=== PATIENT | male | born 1970 | race Caucasian/White ===

== ENCOUNTER → 2018-03-28 | Outpatient (CLI) | payer OTHER ==
--- NOTE | 2018-03-28 19:04 | CT ---
EXAMINATION TYPE: CT abdomen pelvis wo con DATE OF EXAM: 03/28/2018 COMPARISON: NONE HISTORY: Hematuria x couple days. CT DLP: 549.4 mGycm Automated exposure control for dose reduction was used. TECHNIQUE: Helical acquisition of images was performed from the lung bases through the pelvis. FINDINGS: Lung bases are clear. There is no pleural effusion. Heart size is normal. Liver shows no focal defect. Spleen pancreas gallbladder appear normal. Bile ducts are not dilated. There is no adrenal mass. The kidneys have normal size and contour. There is no hydronephrosis. Urete rs are not dilated. Appendix appears normal. There is no retroperitoneal adenopathy. I see no intesti nal wall thickening. There are no dilated loops. Bladder distends smoothly. There is no free fluid. T here is no sign of free air. The bony structures are intact. IMPRESSION: NEGATIVE CT SCAN OF THE ABDOMEN AND PELVIS.
== END | disposition home or self-care (01) ==
LOC: RADCTMAIN 16:44
PROVIDERS: ATTEND Family Medicine
DX: R31.0 Gross hematuria (principal)
CPT/HCPCS: 74176

== ENCOUNTER → 2019-05-20 | Outpatient (CLI) | payer OTHER ==
--- NOTE | 2019-05-20 15:10 | US ---
EXAMINATION TYPE: US venous doppler duplex LE LT DATE OF EXAM: 05/20/2019 12:12 PM COMPARISON: NONE CLINICAL HISTORY: R60.0 EDEMA. Pain behind left knee since last night SIDE PERFORMED: left TECHNIQUE: The lower extremity deep venous system is examined utilizing real time linear array sonog kenny with graded compression, doppler sonography and color-flow sonography. VESSELS IMAGED: External Iliac Vein (EIV) Common Femoral Vein Deep Femoral Vein Greater Saphenous Vein * Femoral Vein Popliteal Vein Small Saphenous Vein * Proximal Calf Veins (* superficial vessels) There is normal flow, compressibility, vascular waveforms. Left Leg: No evidence of DVT as visualized IMPRESSION: No evident deep venous thrombosis at or above the left knee, follow-up as indicated
== END | disposition home or self-care (01) ==
LOC: RADUSWWP 11:48
PROVIDERS: ATTEND Family Medicine
DX: R60.0 Localized edema (principal)

== ENCOUNTER → 2019-06-10 | Outpatient (CLI) | payer OTHER ==
--- NOTE | 2019-06-10 09:26 | US ---
"EXAMINATION TYPE: US liver DATE OF EXAM: 06/10/2019 COMPARISON: CT 2018 CLINICAL HISTORY: K70.40 Alcoholic hepatic failure without coma. Elevated liver enzymes EXAM MEASUREMENTS: Liver Length: 18.5 cm Gallbladder Wall: 0.3 cm CBD: 0.8 cm Right Kidney: 11.5 x 5.3 x 5.2 cm Pancreas: visualized portions wnl, limited by overlying midline bowel gas Liver: enlarged and slightly heterogenous. Gallbladder: pericholecystic fluid seen. No cholelithiasis or biliary sludge. Evidence for sonographic Farias's sign: no CBD: dilated distally Right Kidney: wnl IMPRESSION: 1. Hepatomegaly and slightly coarsened hepatic echotexture in keeping with this patient's history of hepatocellular disease. 2. Scant amount of fluid in the gallbladder fossa may relate to ascites from this patient's hepatocel lular disease or acute cholecystitis as there is dilatation of the common bile duct distally. HIDA sc an is recommended for further evaluation. A Yellow level critical message alert has been initiated for Pedro Campbell MD via the [employer] | Critical Results System on 06/10/2019 9:23 AM. This message alert has been sent to Pedro Campbell MD via the preferences provided by the clinician for the receipt of Radiology Critical Findings. Mess age ID [id number]."
== END | disposition home or self-care (01) ==
LOC: RADUSWWP 06:56
PROVIDERS: ATTEND Family Medicine
DX: K83.8 Other specified diseases of biliary tract (principal); R16.0 Hepatomegaly, not elsewhere classified
CPT/HCPCS: 76705

== ENCOUNTER → 2019-06-20 | Outpatient (CLI) | payer OTHER ==
--- NOTE | 2019-06-20 09:42 | NM ---
EXAMINATION TYPE: NM hepatobiliary w EF DATE OF EXAM: 06/20/2019 COMPARISON: Ultrasound dated 06/10/2019 HISTORY: Abdominal pain, abnormal liver ultrasound dated 06/10/2019 and K 80.2 TECHNIQUE: After the intravenous administration of 5.13 mCi Tc 99m Mebrofenin hepatobiliary scintigra phy is performed. Immediate images post injection. FINDINGS: There is satisfactory initial accumulation of tracer by the liver. The gallbladder is visualized wit hin 12 minutes. The small bowel activity is noted within 8 minutes. At one hour 8 ounces of oral en sure plus is given to mimic CCK and gallbladder ejection fraction is calculated at 51 %, in the navdeep l range. Therefore there is no scintigraphic evidence of cystic or common bile duct obstruction to s uggest acute cholecystitis or gallbladder dyskinesia. IMPRESSION: No scintigraphic evidence of acute cholecystitis, chronic cholecystitis or biliary dyskin esia. The previously seen pericholecystic fluid appears to therefore related to the surrounding hepat ocellular disease on ultrasound of 06/10/2019 rather than acute cholecystitis.
== END ==
LOC: RADNMMAIN 07:03
PROVIDERS: ATTEND Family Medicine
DX: K80.20 Calculus of gallbladder without cholecystitis without obstruction (principal)
CPT/HCPCS: 78226; A9537

== ENCOUNTER → 2019-08-25 | Outpatient (CLI) | payer OTHER ==
--- NOTE | 2019-08-26 05:22 | MR ---
EXAMINATION TYPE: MR MRCP DATE OF EXAM: 08/25/2019 COMPARISON: HISTORY: Abnormal labwork, unspecified jaundice, hx of alcholism per patient Standard multiplanar, multisequence MRI departmental protocol Multiplanar, multisequence images of the abdomen were acquired. There are MRCP images. There are 3-D reconstructed images. FINDINGS: Liver shows no focal defect. Spleen measures 12 cm in length. Liver appears large. The bile ducts are not dilated. I see no definite gallstones. The pancreatic duct appears normal. There is no evidence of a pancreatic mass. Kidneys have normal size and contour. There is no hydronephrosis. There is no evidence of adrenal mas s. There is probably some atelectasis right lung base. There is no pleural effusion. There is mild maco quiana narrowing of the proximal common hepatic duct. I see no definite filling defect. The intrahepat ic bile ducts are not dilated. IMPRESSION: The bile ducts are not dilated. There is a possible mild stricture of the proximal common hepatic nasir t. This could also relate to a crossing structure. A single lesion would be an unusual appearance for sclerosing cholangitis. The intrahepatic bile ducts are not dilated. No definite gallstones. Mild hepatomegaly. No discrete liver mass.
== END | disposition home or self-care (01) ==
LOC: RADMRIMAIN 19:40
PROVIDERS: ATTEND Internal Medicine
DX: R16.0 Hepatomegaly, not elsewhere classified (principal)
CPT/HCPCS: 74181

== ENCOUNTER → 2019-08-25 | Outpatient (CLI) | payer OTHER ==
[2019-08-25 14:41] LABS: INR 1.4 (<1.2); Prothrombin Time 13.9 sec (9.0-12.0)
[2019-08-25 15:09] LABS: HCT 37.3 % (39.0-53.0); HGB 12.7 gm/dL (13.0-17.5); MCH 35.7 pg (25.0-35.0); MCHC 34.1 g/dL (31.0-37.0); MCV 104.6 fL (80.0-100.0); Macrocytosis Slight; Mean Platelet Volume 6.4; Platelet Count 140 k/uL (150-450); RBC 3.56 m/uL (4.30-5.90); RDW 13.8 % (11.5-15.5); WBC 7.8 k/uL (3.8-10.6)
[2019-08-25 18:43] LABS: African American GFR (CKD) 128.4 (60.0-200.0); Albumin 4.1 g/dL (3.80-4.90); Albumin/Globulin Ratio 1.41 (1.60-3.17); Anion Gap 13.9 mmol/L (4.00-12.00); BUN/Creat Ratio 7.14 Ratio (12.00-20.00); Calcium 8.5 mg/dL (8.7-10.3); Carbon Dioxide 24.1 mmol/L (21.6-31.8); Globulin 2.9 g/dL (1.6-3.3); Non-African American GFR(CKD) 110.8 (60.0-200.0); Potassium 3.7 mmol/L (3.5-5.5); Total Bilirubin 2.3 mg/dL (0.2-1.2)
[2019-08-25 21:04] LABS: Iron Saturation 26.85 (15.00-50.00); Iron(FE) 87 ug/dL (65-175); Total Iron Binding Capacity 324 ug/dL (228-460)
[2019-08-25 21:13] LABS: Ferritin 717.9 ng/mL (22.0-322.0)
[2019-08-25 22:14] LABS: Hepatitis A Antibody IgM Non-Reactive (Non-Reactive); Hepatitis B Core IgM Non-Reactive (Non-Reactive)
[2019-08-25 22:15] LABS: Hepatitis B Surface Antigen Non-Reactive (Non-Reactive); Hepatitis C IgG Antibody Non-Reactive (Non-Reactive)
[2019-08-26 00:47] LABS: Alpha Fetoprotein, Tumor Mkr 7.8 ng/mL (0.0-7.9)
[2019-08-26 11:11] LABS: Liver/Kidney Microsome Antibod 1.3 UNITS (<=20)
[2019-08-26 15:29] LABS: Ceruloplasmin 30.3 mg/dL (20.0-60.0)
[2019-08-26 16:24] LABS: Gamma Globulin 1.48 g/dL (0.70-1.50)
== END | disposition home or self-care (01) ==
LOC: LABWHC1 13:40
PROVIDERS: ATTEND Internal Medicine
DX: R74.8 Abnormal levels of other serum enzymes (principal)
CPT/HCPCS: 36415; 80053; 80074; 81596; 82103; 82105; 82140; 82390; 82728; 83516; 83540; 83550; 84165; 85027; 85610; 86376

== ENCOUNTER → 2019-12-01 | Outpatient (CLI) | payer OTHER ==
[2019-12-01 09:57] LABS: INR 1.4 (<1.2); Prothrombin Time 14.3 sec (9.0-12.0)
[2019-12-01 10:01] LABS: HGB 13.5 gm/dL (13.0-17.5); MCH 34.7 pg (25.0-35.0); MCHC 32.2 g/dL (31.0-37.0); MCV 107.7 fL (80.0-100.0); Macrocytosis Marked; Mean Platelet Volume 9.4; RDW 14.7 % (11.5-15.5); WBC 7.1 k/uL (3.8-10.6)
[2019-12-01 10:39] LABS: Platelet Count 92 k/uL (150-450)
[2019-12-01 16:07] LABS: Protein, Total 7.3 g/dL (6.2-8.2)
[2019-12-01 16:12] LABS: African American GFR (CKD) 121.6 (60.0-200.0); Albumin 3.9 g/dL (3.80-4.90); Albumin/Globulin Ratio 1.15 (1.60-3.17); Anion Gap 11.6 mmol/L (4.00-12.00); BUN/Creat Ratio 11.25 Ratio (12.00-20.00); Calcium 8.7 mg/dL (8.7-10.3); Carbon Dioxide 25.4 mmol/L (21.6-31.8); Globulin 3.4 g/dL (1.6-3.3); Non-African American GFR(CKD) 104.9 (60.0-200.0); Potassium 4.1 mmol/L (3.5-5.5); Total Bilirubin 3.3 mg/dL (0.2-1.2); Total Protein 7.3 g/dL (6.2-8.2)
[2019-12-02 11:49] LABS: Albumin 3.55 g/dL (3.80-4.90); Gamma Globulin 1.93 g/dL (0.70-1.50)
== END | disposition home or self-care (01) ==
LOC: LABWHC1 08:13
PROVIDERS: ATTEND Internal Medicine
DX: R74.8 Abnormal levels of other serum enzymes (principal)
CPT/HCPCS: 36415; 80053; 84165; 85027; 85610

== ENCOUNTER 2019-12-03 01:00 | Inpatient (IN) | payer OTHER ==
[2019-12-03] MEDS ORDERED: ONDANSETRON 4 MG/2 ML VIAL IVP STA (01:57)
[2019-12-03] MEDS ORDERED: SODIUM CHLORIDE 0.9% 1,000 ML IV ONE ×2 (01:57→11:12)
[2019-12-03] MEDS ORDERED: PANTOPRAZOLE 40 MG/10 ML VIAL IVP STA (01:57)
[2019-12-03 02:07] LABS: HCT 36.6 % (39.0-53.0); HGB 11.6 gm/dL (13.0-17.5); MCHC 31.6 g/dL (31.0-37.0); MCV 107.6 fL (80.0-100.0); Macrocytosis Marked; Mean Platelet Volume 10.1; RBC 3.41 m/uL (4.30-5.90)
[2019-12-03] MEDS ORDERED: OCTREOTIDE 100 MCG in SODIUM CHLORIDE 0.9% 100 ML IVPB ONE (02:15)
[2019-12-03 02:16] LABS: INR 1.5 (<1.2); Partial Thromboplastin Time 30.6 sec (22.0-30.0); Prothrombin Time 14.8 sec (9.0-12.0)
--- NOTE | 2019-12-03 02:17 | ED ---
GI Bleed HPI - General Chief complaint: GI Bleed Stated complaint: Vomiting Time Seen by Provider: 12/03/19 02:08 Source: patient, family Mode of arrival: ambulatory Limitations: no limitations - History of Present Illness Initial comments: Paresh a 48-year-old alcoholic male who presents the emergency department today via private vehicle for evaluation of GI bleed. Patient reports she's been having black stools for 2-3 days and today began having dark bloody vomitus. Patient reports he usually drinks 6-8 beers daily he's been a drinker for a very long period of time, in October 2019 he began a workup for possible liver cancer though was told likely not cancer does alcoholic liver disease. He follows with Dr. ema barbosa. He denies having ever had an EGD or colonoscopy. He denies previous GI bleeding. Denies any diagnosis of esophageal varices in the past. Last drink was in the afternoon - Related Data Home Medications Medication Instructions Recorded Confirmed Blood Pressure Med (Unknown) 1 tab PO DIRECTED 12/03/14 03/03/15 LORazepam [Ativan] 0.5 mg PO BID PRN 12/03/14 03/03/15 Previous Rx's Medication Instructions Recorded Meclizine [Antivert] 25 mg PO TID PRN #12 tab 03/03/15 Allergies Allergy/AdvReac Type Severity Reaction Status Date / Time No Known Allergies Allergy Verified 12/03/19 01:14 Review of Systems ROS Statement: Those systems with pertinent positive or pertinent negative responses have been documented in the HPI. ROS Other: All systems not noted in ROS Statement are negative. Past Medical History Past Medical History: Hypertension Additional Past Medical History / Comment(s): ETOH abuse, liver failure History of Any Multi-Drug Resistant Organisms: None Reported Past Surgical History: Hernia Repair Additional Past Surgical History / Comment(s): Inguinal Herniea repair Past Psychological History: Anxiety Smoking Status: Never smoker Past Alcohol Use History: Heavy Past Drug Use History: None Reported General Exam - General Exam Comments Initial Comments: Physical Exam GENERAL: Chronically ill, appears older than stated age HENT: Normocephalic, Atraumatic. EYES: PERRL, EOMI PULMONARY: Unlabored respirations. No audible rales rhonchi or wheezing was noted. CARDIOVASCULAR: Tachycardic, regular with warm and well perfused extremities ABDOMEN: Hepatomegaly SKIN: Stigmata of alcoholism : Deferred NEUROLOGIC: Patient is alert and oriented x3. Moving all extremities spontaneously MUSCULOSKELETAL: Normal extremities with adequate strength and full range of motion. No lower extremity swelling or edema. No calf tenderness. PSYCHIATRIC: Normal psychiatric evaluation. Limitations: no limitations Course Vital Signs 12/03/19 12/03/19 12/03/19 01:10 02:06 03:04 Temperature 98.4 F Pulse Rate 125 H 121 H 114 H Respiratory 18 18 18 Rate Blood Pressure 133/82 119/59 131/71 O2 Sat by Pulse 95 94 L 95 Oximetry Medical Decision Making - Medical Decision Making The patient was seen and evaluated history is obtained from patient and at bedside and review of medical record 48-year-old alcoholic male with hematemesis and dark tarry stools. Tachycardia, no hypotension, no pallor Will treat empirically as a possible variceal bleeding. Labs were checked 2 days prior - patient has 2 g hemoglobin drop today Given risk factors - EtOH liver disease, coagulopathy - and tachycardia and significant hemoglobin drop I will recommend the patient be admitted to the ICU Care was discussed with his primary care physician who agrees with plan for admission to ICU with serial H&H's and consult to gastroenterology next line patient care was discussed with the rabbit breeder Dr. Palomares and who agrees with plan for admission, medications as given, consult gastroenterology and serial H&H. - Lab Data Result diagrams: 12/03/19 01:46 12/03/19 01:46 Lab Results 12/03/19 12/03/19 12/03/19 Range/Units 01:46 01:46 01:46 WBC 10.0 (3.8-10.6) k/uL RBC 3.41 L (4.30-5.90) m/uL Hgb 11.6 L (13.0-17.5) gm/dL Hct 36.6 L (39.0-53.0) % MCV 107.6 H (80.0-100.0) fL MCH 34.0 (25.0-35.0) pg MCHC 31.6 (31.0-37.0) g/dL RDW 15.0 (11.5-15.5) % Plt Count 95 L (150-450) k/uL Neutrophils % (Manual) 63 % Lymphocytes % (Manual) 26 % Monocytes % (Manual) 7 % Eosinophils % (Manual) 4 % Neutrophils # (Manual) 6.30 (1.3-7.7) k/uL Lymphocytes # (Manual) 2.60 (1.0-4.8) k/uL Monocytes # (Manual) 0.70 (0-1.0) k/uL Eosinophils # (Manual) 0.40 (0-0.7) k/uL Nucleated RBCs 0 (0-0) /100 WBC Manual Slide Review Performed Macrocytosis Marked A PT 14.8 H (9.0-12.0) sec INR 1.5 H (<1.2) APTT 30.6 H (22.0-30.0) sec Sodium 141 (137-145) mmol/L Potassium 4.5 (3.5-5.1) mmol/L Chloride 106 (98-107) mmol/L Carbon Dioxide 24 (22-30) mmol/L Anion Gap 11 mmol/L BUN 17 (9-20) mg/dL Creatinine 0.65 L (0.66-1.25) mg/dL Est GFR (CKD-EPI)AfAm >90 (>60 ml/min/1.73 sqM) Est GFR (CKD-EPI)NonAf >90 (>60 ml/min/1.73 sqM) Glucose 98 (74-99) mg/dL Plasma Lactic Acid Michele (0.7-2.0) mmol/L Calcium 8.7 (8.4-10.2) mg/dL Total Bilirubin 2.6 H (0.2-1.3) mg/dL AST 148 H (17-59) U/L ALT 54 H (4-49) U/L Alkaline Phosphatase 158 H (38-126) U/L Ammonia (<30) umol/L Total Protein 7.1 (6.3-8.2) g/dL Albumin 3.4 L (3.5-5.0) g/dL Amylase 72 (30-110) U/L Lipase 219 (23-300) U/L Serum Alcohol 75 mg/dL Blood Type Blood Type Confirm Blood Type Recheck Bld Type Recheck Status Antibody Screen Spec Expiration Date 12/03/19 12/03/19 12/03/19 Range/Units 01:46 02:12 02:14 WBC (3.8-10.6) k/uL RBC (4.30-5.90) m/uL Hgb (13.0-17.5) gm/dL Hct (39.0-53.0) % MCV (80.0-100.0) fL MCH (25.0-35.0) pg MCHC (31.0-37.0) g/dL RDW (11.5-15.5) % Plt Count (150-450) k/uL Neutrophils % (Manual) % Lymphocytes % (Manual) % Monocytes % (Manual) % Eosinophils % (Manual) % Neutrophils # (Manual) (1.3-7.7) k/uL Lymphocytes # (Manual) (1.0-4.8) k/uL Monocytes # (Manual) (0-1.0) k/uL Eosinophils # (Manual) (0-0.7) k/uL Nucleated RBCs (0-0) /100 WBC Manual Slide Review Macrocytosis PT (9.0-12.0) sec INR (<1.2) APTT (22.0-30.0) sec Sodium (137-145) mmol/L Potassium (3.5-5.1) mmol/L Chloride (98-107) mmol/L Carbon Dioxide (22-30) mmol/L Anion Gap mmol/L BUN (9-20) mg/dL Creatinine (0.66-1.25) mg/dL Est GFR (CKD-EPI)AfAm (>60 ml/min/1.73 sqM) Est GFR (CKD-EPI)NonAf (>60 ml/min/1.73 sqM) Glucose (74-99) mg/dL Plasma Lactic Acid Michele 2.7 H* (0.7-2.0) mmol/L Calcium (8.4-10.2) mg/dL Total Bilirubin (0.2-1.3) mg/dL AST (17-59) U/L ALT (4-49) U/L Alkaline Phosphatase (38-126) U/L Ammonia 50 H (<30) umol/L Total Protein (6.3-8.2) g/dL Albumin (3.5-5.0) g/dL Amylase (30-110) U/L Lipase (23-300) U/L Serum Alcohol mg/dL Blood Type O Positive Blood Type Confirm O Positive Blood Type Recheck No Previous Record Bld Type Recheck Status CABO Indicated Antibody Screen NEGATIVE Spec Expiration Date 12/06/20193 Critical Care Time Critical Care Time: Yes Total Critical Care Time: 35 Critical Care Time: Critical Care Time Critical care time was exclusive of separately billable procedures and treating other patients and teaching time. Critical care was necessary to treat or prevent imminent or life-threatening deterioration. Given the critical condition in which the patient arrived, the patient was immediately assessed by myself and the nurse, and cardiac monitoring initiated due to the potential for rapid decompensation of the patient's clinical condition. During the course of the patients stay, I spent a considerable amount of time at the bedside performing serial re-evaluations of the patient's hemodynamic and clinical status because of the recognized potential threat to life or limb in this condition. I then had a chance to review not only all of the available current laboratory and radiographic studies obtained today, but I also reviewed old records available to me at the time. Additionally, any ancillary information available including edge blacker records were reviewed. Sequential vital signs were obtained. Disposition Clinical Impression: Hematemesis, Hematochezia, Alcoholic liver disease, Coagulopathy, Acute blood loss anemia Disposition: ADMITTED IP TO THIS [facility] Condition: Critical Referrals: Pedro Campbell MD [Primary Care Provider] - 1-2 days
[2019-12-03 02:21] LABS: ALT 54 U/L (4-49); AST 148 U/L (17-59); African American GFR (CKD) >90 (>60 ml/min/1.73 sqM); Albumin 3.4 g/dL (3.5-5.0); Alcohol 75 mg/dL; Alkaline Phosphatase 158 U/L (38-126); Amylase 72 U/L (30-110); Anion Gap 11 mmol/L; Blood Urea Nitrogen 17 mg/dL (9-20); Calcium 8.7 mg/dL (8.4-10.2); Carbon Dioxide 24 mmol/L (22-30); Chloride 106 mmol/L (98-107); Glucose 98 mg/dL (74-99); Non-African American GFR(CKD) >90 (>60 ml/min/1.73 sqM); Potassium 4.5 mmol/L (3.5-5.1); Sodium 141 mmol/L (137-145); Total Bilirubin 2.6 mg/dL (0.2-1.3); Total Protein 7.1 g/dL (6.3-8.2)
[2019-12-03] MEDS ORDERED: TRANEXAMIC ACID 1,000 MG in SODIUM CHLORIDE 0.9% 100 ML IVPB ONE (02:45)
[2019-12-03 02:49] LABS: Neutrophils % (M) 63 %; Nucleated Red Blood Cells 0 /100 WBC (0-0); Platelet Count 95 k/uL (150-450); Total Cells Counted 100
[2019-12-03] MEDS ORDERED: ONDANSETRON 4 MG/2 ML VIAL IVP PRN (03:02)
[2019-12-03] MEDS ORDERED: NALOXONE 0.4 MG/ML 1 ML VIAL IV PRN (03:02)
[2019-12-03 03:05] LABS: Lactic Acid, Venous 2.7 mmol/L (0.7-2.0)
[2019-12-03] MEDS ORDERED: LACTATED RINGERS 1,000 ML IV SCH (03:15)
[2019-12-03] MEDS ORDERED: LORazepam 2 MG/ML INJ IV PRN ×2 (03:18)
[2019-12-03] MEDS ORDERED: THIAMINE 100 MG/ML 2 ML VIAL IM STA (03:18)
[2019-12-03] MEDS: LORazepam 2 MG/ML INJ IV PRN (03:49)
[2019-12-03 08:47] LABS: Glucose,Whole Blood 129 mg/dL (75-99)
[2019-12-03] MEDS ORDERED: PANTOPRAZOLE 40 MG/10 ML VIAL IV SCH (09:00)
[2019-12-03] MEDS ORDERED: PROCHLORPERAZINE SUPPOSITORY 25 MG SUPP RECTAL PRN (09:00)
--- NOTE | 2019-12-03 11:09 | P.HPIM ---
History of Present Illness 48-year-old male on presented the emergency room with complaints of black tarry stools for 2 days. Patient had E emesis this morning significant other brought into the emergency room. Hemoglobin 11 this is a to 2 g drop. Patient has history of alcohol abuse drink 6-8 beers daily has been doing this for a long time Review of Systems Gastrointestinal: Reports hematemesis, Reports hematochezia Past Medical History Past Medical History: Hypertension Additional Past Medical History / Comment(s): ETOH abuse (6-8 beers a day, "the big boys"), liver failure History of Any Multi-Drug Resistant Organisms: None Reported Past Surgical History: Hernia Repair Additional Past Surgical History / Comment(s): bilateral Inguinal Herniea repair Past Anesthesia/Blood Transfusion Reactions: No Reported Reaction Past Psychological History: Anxiety Smoking Status: Never smoker Past Alcohol Use History: Heavy Past Drug Use History: None Reported - Past Family History Father Family Medical History: Cancer Additional Family Medical History / Comment(s): Passed from Lung CA, heavy smoker Mother Family Medical History: Cancer Additional Family Medical History / Comment(s): Passed from CA Sister(s) Family Medical History: Thyroid Disorder Medications and Allergies Home Medications Medication Instructions Recorded Confirmed Type Lisinopril-Hctz 20-12.5 mg 1 tab PO DAILY 12/03/19 12/03/19 History [Zestoretic 20-12.5] Sertraline [Zoloft] 50 mg PO DAILY 12/03/19 12/03/19 History Allergies Allergy/AdvReac Type Severity Reaction Status Date / Time No Known Allergies Allergy Verified 12/03/19 07:38 Physical Exam Vitals: Vital Signs Temp Pulse Resp BP Pulse Ox 12/03/19 07:24 112 H 18 125/77 94 L 12/03/19 06:07 99.0 F 122 H 18 112/78 94 L 12/03/19 05:00 115 H 18 122/83 92 L 12/03/19 03:55 116 H 18 149/89 92 L 12/03/19 03:04 114 H 18 131/71 95 12/03/19 02:06 121 H 18 119/59 94 L 12/03/19 01:10 98.4 F 125 H 18 133/82 95 Intake and Output 01/28/20 01/29/20 01/29/20 22:59 06:59 14:59 Output Total 200 Balance -200 Output: Urine 200 Other: # Voids 1 Weight 88.451 kg - Constitutional General appearance: mild distress - EENT Eyes: PERRLA Ears: bilateral: normal - Neck Neck: normal ROM - Respiratory Respiratory: bilateral: CTA - Cardiovascular Rhythm: regular - Gastrointestinal General gastrointestinal: normal bowel sounds, soft - Integumentary Integumentary: normal - Neurologic Neurologic: CNII-XII intact - Psychiatric Psychiatric: A&O x's 3, appropriate affect, intact judgment & insight Results CBC & Chem 7: 12/03/19 01:46 12/03/19 01:46 Labs: Abnormal Lab Results - Last 24 Hours (Table) 12/03/19 12/03/19 12/03/19 Range/Units 01:46 01:46 01:46 RBC 3.41 L (4.30-5.90) m/uL Hgb 11.6 L (13.0-17.5) gm/dL Hct 36.6 L (39.0-53.0) % MCV 107.6 H (80.0-100.0) fL Plt Count 95 L (150-450) k/uL Macrocytosis Marked A PT 14.8 H (9.0-12.0) sec INR 1.5 H (<1.2) APTT 30.6 H (22.0-30.0) sec Creatinine 0.65 L (0.66-1.25) mg/dL POC Glucose (mg/dL) (75-99) mg/dL Plasma Lactic Acid Michele (0.7-2.0) mmol/L Total Bilirubin 2.6 H (0.2-1.3) mg/dL AST 148 H (17-59) U/L ALT 54 H (4-49) U/L Alkaline Phosphatase 158 H (38-126) U/L Ammonia (<30) umol/L Albumin 3.4 L (3.5-5.0) g/dL 12/03/19 12/03/19 12/03/19 Range/Units 02:12 06:47 08:46 RBC (4.30-5.90) m/uL Hgb (13.0-17.5) gm/dL Hct (39.0-53.0) % MCV (80.0-100.0) fL Plt Count (150-450) k/uL Macrocytosis PT (9.0-12.0) sec INR (<1.2) APTT (22.0-30.0) sec Creatinine (0.66-1.25) mg/dL POC Glucose (mg/dL) 129 H (75-99) mg/dL Plasma Lactic Acid Michele 2.7 H* 3.3 H* (0.7-2.0) mmol/L Total Bilirubin (0.2-1.3) mg/dL AST (17-59) U/L ALT (4-49) U/L Alkaline Phosphatase (38-126) U/L Ammonia 50 H (<30) umol/L Albumin (3.5-5.0) g/dL Thrombosis Risk Factor Assmnt - Choose All That Apply Each Factor Represents 1 point: Age 41-60 years, Obesity (BMI >25) Thrombosis Risk Factor Assessment Total Risk Factor Score: 2 Thrombosis Risk Factor Assessment Level: Low Risk Assessment and Plan Plan: Assessment GI bleed hematemesis hematochezia Alcoholic liver disease Coagulopathy secondary to above Anemia acute blood loss history of hypertension EtOH abuse 6-8 beers daily Plan Admission intensive care unit with acid tank liner Gastroenterology consult
--- NOTE | 2019-12-03 11:24 | P.CNPUL ---
History of Present Illness Consult date: 12/03/19 Requesting physician: Pedro Campbell Reason for consult: other Chief complaint: Coffee-ground emesis, melena, GI bleeding History of present illness: 48-year-old patient of Dr. Pedro Campbell with past medical history of chronic liver disease related to history of EtOH abuse, patient follows with Dr. Randhawa from GI services. Other medical history is that of hypertension, anxiety, lifetime nonsmoker. No history of diabetes, no history of heart disease, no surgical procedures. She presents to the emergency department on 12/03/2019 little after midnight with a 2 day history of melanotic stools, and last night patient started having dark vomitus, patient had 2 or 3 episodes of ground emesis at home, and one more once he arrived to the emergency department. Admission blood work showed a white blood cell count of 10.0, hemoglobin of 11.6. Platelet count of 95, INR 1.5, electrolytes were within normal limits, BUN 17, creatinine 0.65, lactic acid was 2.7, total bilirubin was 2.6, AST was 148, ALT was 54, alkaline phosphatase was 158, ammonia level was 50, amylase and lipase were both within normal limits, serum alcohol level was 75, patient states he regularly drinks 6-8 tall beers on a daily basis, and his last drink was 2 days ago. Patient was given a liter IV fluid bolus, she was started on PPI therapy, he was given octreotide infusion, tranexamic acid infusion. Currently blood pressure is 141/84, patient still remains tachycardic in sinus mechanism with a rate of 116-124 BPM. Room air pulse ox is 92%, patient denies any shortness of breath, no chest pain, no abdominal pain. IV maintenance fluids infusing at a rate of 100 ML per hour. No further vomiting or melena, awaiting GI evaluation, awaiting admission to the intensive care unit. Review of Systems All systems: negative Constitutional: Denies chills, Denies fever Eyes: denies blurred vision, denies pain Ears, nose, mouth and throat: Denies headache, Denies sore throat Cardiovascular: Denies chest pain, Denies shortness of breath Respiratory: Denies cough Gastrointestinal: Reports coffee ground emesis, Reports melena, Denies abdominal pain, Denies diarrhea, Denies nausea, Denies vomiting Musculoskeletal: Denies myalgias Integumentary: Denies pruritus, Denies rash Neurological: Denies numbness, Denies weakness Psychiatric: Denies anxiety, Denies depression Endocrine: Denies fatigue, Denies weight change Past Medical History Past Medical History: Hypertension Additional Past Medical History / Comment(s): ETOH abuse (6-8 beers a day, "the big boys"), liver failure History of Any Multi-Drug Resistant Organisms: None Reported Past Surgical History: Hernia Repair Additional Past Surgical History / Comment(s): bilateral Inguinal Herniea repair Past Anesthesia/Blood Transfusion Reactions: No Reported Reaction Past Psychological History: Anxiety Smoking Status: Never smoker Past Alcohol Use History: Heavy Past Drug Use History: None Reported - Past Family History Father Family Medical History: Cancer Additional Family Medical History / Comment(s): Passed from Lung [place], heavy smoker Mother Family Medical History: Cancer Additional Family Medical History / Comment(s): Passed from [place] Sister(s) Family Medical History: Thyroid Disorder Medications and Allergies Home Medications Medication Instructions Recorded Confirmed Type Lisinopril-Hctz 20-12.5 mg 1 tab PO DAILY 12/03/19 12/03/19 History [Zestoretic 20-12.5] Sertraline [Zoloft] 50 mg PO DAILY 12/03/19 12/03/19 History Allergies Allergy/AdvReac Type Severity Reaction Status Date / Time No Known Allergies Allergy Verified 12/03/19 07:38 Physical Exam Vitals: Vital Signs Temp Pulse Resp BP Pulse Ox 12/03/19 07:24 112 H 18 125/77 94 L 12/03/19 06:07 99.0 F 122 H 18 112/78 94 L 12/03/19 05:00 115 H 18 122/83 92 L 12/03/19 03:55 116 H 18 149/89 92 L 12/03/19 03:04 114 H 18 131/71 95 12/03/19 02:06 121 H 18 119/59 94 L 12/03/19 01:10 98.4 F 125 H 18 133/82 95 Intake and Output 12/02/19 12/03/19 12/03/19 22:59 06:59 14:59 Output Total 200 Balance -200 Output: Urine 200 Other: # Voids 1 Weight 88.451 kg GENERAL EXAM: Alert, very pleasant, 48-year-old white male, on room air, with a pulse ox of 92-94%, comfortable in no apparent distress. Tachycardic on the monitor, in sinus mechanism with a rate of 116-124 BPM HEAD: Normocephalic/atraumatic. EYES: Normal reaction of pupils, equal size. Conjunctiva pink, sclera white. NOSE: Clear with pink turbinates. THROAT: No erythema or exudates. NECK: No masses, no JVD, no thyroid enlargement, no adenopathy. CHEST: No chest wall deformity. Symmetrical expansion. LUNGS: Equal air entry with no crackles, wheeze, rhonchi or dullness. CVS: Regular rate and rhythm, normal S1 and S2, no gallops, no murmurs, no rubs ABDOMEN: Soft, nontender. No hepatosplenomegaly, normal bowel sounds, no guarding or rigidity. EXTREMITIES: No clubbing, no edema, no cyanosis, 2+ pulses and upper and lower extremities. MUSCULOSKELETAL: Muscle strength and tone normal. SPINE: No scoliosis or deformity SKIN: No rashes CENTRAL NERVOUS SYSTEM: Alert and oriented -3. No focal deficits, tone is normal in all 4 extremities. PSYCHIATRIC: Alert and oriented -3. Appropriate affect. Intact judgment and insight. Results - Laboratory Findings CBC and BMP: 12/03/19 01:46 12/03/19 01:46 PT/INR, D-dimer PT 14.8 sec (9.0-12.0) H 12/03/19 01:46 INR 1.5 (<1.2) H 12/03/19 01:46 Abnormal lab findings: Abnormal Labs 12/03/19 12/03/19 12/03/19 01:46 01:46 01:46 RBC 3.41 L Hgb 11.6 L Hct 36.6 L MCV 107.6 H Plt Count 95 L Macrocytosis Marked A PT 14.8 H INR 1.5 H APTT 30.6 H Creatinine 0.65 L POC Glucose (mg/dL) Plasma Lactic Acid Michele Total Bilirubin 2.6 H AST 148 H ALT 54 H Alkaline Phosphatase 158 H Ammonia Albumin 3.4 L 12/03/19 12/03/19 12/03/19 02:12 06:47 08:46 RBC Hgb Hct MCV Plt Count Macrocytosis PT INR APTT Creatinine POC Glucose (mg/dL) 129 H Plasma Lactic Acid Michele 2.7 H* 3.3 H* Total Bilirubin AST ALT Alkaline Phosphatase Ammonia 50 H Albumin Assessment and Plan Plan: Assessment: #1. Acute GI blood loss anemia, likely related to upper GI, patient presented with a 2 day history of black tarry stools, and coffee ground emesis, admission hemoglobin was 11.6 #2. Mild lactic acidosis, not related to sepsis, in a patient with history of chronic liver disease. However patient is thought to be intravascularly depleted, and was fluid resuscitated with 1 L IV bolus, patient will receive an additional liter of IV fluids #3. Chronic EtOH abuse, patient drinks 6812 beers on a daily basis, last drink was 48 hours ago #4. Hypertension #5. Coagulopathy, was elevated at 1.5 #6. Chronic liver disease due to history of EtOH abuse #7. Anxiety #8. Lifetime nonsmoker Plan: We'll give the patient additional 1 L IV bolus of 0.9 normal saline, we'll switch maintenance IV fluids 0.9 normal saline, and is still tachycardic, likely still intravascularly depleted, there has not been any further vomiting or melena since admission, continue serial H&H's. Blood pressure is within normal limits. We'll increase the Protonix to twice daily, will continue octreotide infusion at 25 mg per hour, annual COPD protocol, monitor for Anju of delirium tremens, maintaining safety precautions. Awaiting GI evaluation, keep patient nothing by mouth, awaiting admission to the intensive care unit, will continue to follow I performed a history & physical examination of the patient and discussed their management with my nurse practitioner, Ann Marie Davila. I reviewed the nurse practitioner's note and agree with the documented findings and plan of care. Lung sounds are positive for clear breath sounds. The findings and the impression was discussed with the patient. I attest to the documentation by the nurse practitioner. Time with Patient: Greater than 30
[2019-12-03] MEDS: SODIUM CHLORIDE 0.9% 1,000 ML IV SCH ×2 (11:25→22:00)
[2019-12-03] MEDS: OCTREOTIDE 500 MCG in SODIUM CHLORIDE 0.9% 250 ML IV SCH (12:18)
[2019-12-03 12:23] LABS: Glucose,Whole Blood 125 mg/dL (75-99)
[2019-12-03] MEDS ORDERED: PHYTONADIONE 10 MG in SODIUM CHLORIDE 0.9% 50 ML IVPB STA (14:33)
[2019-12-03 19:54] LABS: HCT 29.4 % (39.0-53.0); MCH 35.4 pg (25.0-35.0); MCHC 32.1 g/dL (31.0-37.0); MCV 110.6 fL (80.0-100.0); Mean Platelet Volume 9.1; RBC 2.66 m/uL (4.30-5.90); RDW 14.9 % (11.5-15.5); WBC 5.9 k/uL (3.8-10.6)
[2019-12-03 19:56] LABS: Platelet Count 60 k/uL (150-450)
[2019-12-03 20:02] LABS: HGB 9.4 gm/dL (13.0-17.5); Macrocytosis Marked
[2019-12-03] MEDS: PANTOPRAZOLE 40 MG/10 ML VIAL IV SCH (20:28)
[2019-12-04 01:13] LABS: HCT 28.2 % (39.0-53.0); HGB 9.3 gm/dL (13.0-17.5); MCHC 32.8 g/dL (31.0-37.0); MCV 109.8 fL (80.0-100.0); RBC 2.57 m/uL (4.30-5.90); RDW 14.8 % (11.5-15.5); WBC 4.8 k/uL (3.8-10.6)
[2019-12-04 01:21] LABS: Macrocytosis Marked; Platelet Count 52 k/uL (150-450)
[2019-12-04] MEDS: OCTREOTIDE 500 MCG in SODIUM CHLORIDE 0.9% 250 ML IV SCH (05:11)
--- NOTE | 2019-12-04 05:33 | P.CONS ---
History of Present Illness - Reason for Consult Consult date: 12/03/19 GI bleed Requesting physician: Pedro Campbell - Chief Complaint Dark stool - History of Present Illness 48-year-old male with a medical history significant for alcohol abuse, hypertension and suspected alcoholic cirrhosis who presented to the hospital due to concerns over GI bleed. The patient had been having dark-colored stool over the past 2-3 days prior to admission. He reports 6-8 dark tarry bowel movements. No gross bleeding noted with the bowel movements. No abdominal pain reported in association with a change in bowels. The patient has no prior history of ascites, GI bleed or encephalopathy. He has been seen in the GI clinic for evaluation of suspected alcoholic cirrhosis. No prior history of peptic ulcer disease or NSAID use. The patient has not had an EGD or colonoscopy in the past. Laboratory evaluation on presentation was significant for INR of 1.5, WBC 10, hemoglobin 11.6, platelet count 95,000, MCV 107, total bilirubin 2.6, alkaline phosphatase 158, AST 148, ALT 54, amylase 72, lipase 219. Review of Systems REVIEW OF SYSTEMS: CONSTITUTIONAL: Denies any fevers, chills, weight change or fatigue. CARDIOVASCULAR: Denies any chest pain, palpitations high or low blood pressures RESPIRATORY: Denies any shortness of breath, hemoptysis or cough. GENITOURINARY: No dysuria or hematuria. MUSCULOSKELETAL: No weakness reported. SKIN: Denies any new rashes or lesions, jaundice or pallor. PSYCHIATRIC: Denies any depression or anxiety. NEUROLOGY: Denies headache, denies any new focal deficits. EARS/NOSE/THROAT: No recent hearing change, congestion, nasal discharge or sore throat. EYES: No pain in eyes, discharge or change in vision. GASTROINTESTINAL: As per HPI. Past Medical History Past Medical History: Hypertension Additional Past Medical History / Comment(s): ETOH abuse (6-8 beers a day, "the big boys"), liver failure History of Any Multi-Drug Resistant Organisms: None Reported Past Surgical History: Hernia Repair Additional Past Surgical History / Comment(s): bilateral Inguinal Herniea repair Past Anesthesia/Blood Transfusion Reactions: No Reported Reaction Past Psychological History: Anxiety Smoking Status: Never smoker Past Alcohol Use History: Heavy Past Drug Use History: None Reported - Past Family History Father Family Medical History: Cancer Additional Family Medical History / Comment(s): Passed from Lung [place], heavy smoker Mother Family Medical History: Cancer Additional Family Medical History / Comment(s): Passed from [place] Sister(s) Family Medical History: Thyroid Disorder Medications and Allergies Home Medications Medication Instructions Recorded Confirmed Type Lisinopril-Hctz 20-12.5 mg 1 tab PO DAILY 12/03/19 12/03/19 History [Zestoretic 20-12.5] Sertraline [Zoloft] 50 mg PO DAILY 12/03/19 12/03/19 History Allergies Allergy/AdvReac Type Severity Reaction Status Date / Time No Known Allergies Allergy Verified 12/03/19 07:38 Physical Exam Vitals: Vital Signs Temp Pulse Resp BP Pulse Ox 12/03/19 11:30 112 H 17 141/84 92 L 12/03/19 11:00 115 H 13 124/84 95 12/03/19 10:30 112 H 28 H 90 L 12/03/19 10:00 117 H 26 H 146/84 91 L 12/03/19 09:32 110 H 13 136/88 96 12/03/19 07:24 112 H 18 125/77 94 L 12/03/19 06:07 99.0 F 122 H 18 112/78 94 L 12/03/19 05:00 115 H 18 122/83 92 L 12/03/19 03:55 116 H 18 149/89 92 L 12/03/19 03:04 114 H 18 131/71 95 12/03/19 02:06 121 H 18 119/59 94 L 12/03/19 01:10 98.4 F 125 H 18 133/82 95 Intake and Output 12/02/19 12/03/19 12/03/19 22:59 06:59 14:59 Output Total 200 Balance -200 Output: Urine 200 Other: # Voids 1 Weight 88.451 kg On physical examination, patient appears comfortable in no apparent distress. HEAD: Normocephalic, atraumatic. EYES: No scleral icterus. No conjunctival injection. MOUTH: No lesions, tongue midline. NECK: Trachea midline, no gross abnormalities. CHEST: Clear to auscultation with no wheezing or rhonchi appreciated. HEART: Regular rate and rhythm. ABDOMEN: Soft, obese. Bowel sounds are positive. No organomegaly. No guarding or rigidity. EXTREMITIES: No pedal edema. SKIN: No rashes, no jaundice. NEUROLOGIC: Alert and oriented x3., Tremulousness but no asterixis noted No focal deficits. Results CBC & Chem 7: 12/04/19 01:04 12/03/19 01:46 Labs: Abnormal Lab Results - Last 24 Hours (Table) 12/03/19 12/03/19 12/03/19 Range/Units 01:46 01:46 01:46 RBC 3.41 L (4.30-5.90) m/uL Hgb 11.6 L (13.0-17.5) gm/dL Hct 36.6 L (39.0-53.0) % MCV 107.6 H (80.0-100.0) fL Plt Count 95 L (150-450) k/uL Macrocytosis Marked A PT 14.8 H (9.0-12.0) sec INR 1.5 H (<1.2) APTT 30.6 H (22.0-30.0) sec Creatinine 0.65 L (0.66-1.25) mg/dL POC Glucose (mg/dL) (75-99) mg/dL Plasma Lactic Acid Michele (0.7-2.0) mmol/L Total Bilirubin 2.6 H (0.2-1.3) mg/dL AST 148 H (17-59) U/L ALT 54 H (4-49) U/L Alkaline Phosphatase 158 H (38-126) U/L Ammonia (<30) umol/L Albumin 3.4 L (3.5-5.0) g/dL 12/03/19 12/03/19 12/03/19 Range/Units 02:12 06:47 08:46 RBC (4.30-5.90) m/uL Hgb (13.0-17.5) gm/dL Hct (39.0-53.0) % MCV (80.0-100.0) fL Plt Count (150-450) k/uL Macrocytosis PT (9.0-12.0) sec INR (<1.2) APTT (22.0-30.0) sec Creatinine (0.66-1.25) mg/dL POC Glucose (mg/dL) 129 H (75-99) mg/dL Plasma Lactic Acid Michele 2.7 H* 3.3 H* (0.7-2.0) mmol/L Total Bilirubin (0.2-1.3) mg/dL AST (17-59) U/L ALT (4-49) U/L Alkaline Phosphatase (38-126) U/L Ammonia 50 H (<30) umol/L Albumin (3.5-5.0) g/dL 12/03/19 Range/Units 12:21 RBC (4.30-5.90) m/uL Hgb (13.0-17.5) gm/dL Hct (39.0-53.0) % MCV (80.0-100.0) fL Plt Count (150-450) k/uL Macrocytosis PT (9.0-12.0) sec INR (<1.2) APTT (22.0-30.0) sec Creatinine (0.66-1.25) mg/dL POC Glucose (mg/dL) 125 H (75-99) mg/dL Plasma Lactic Acid Michele (0.7-2.0) mmol/L Total Bilirubin (0.2-1.3) mg/dL AST (17-59) U/L ALT (4-49) U/L Alkaline Phosphatase (38-126) U/L Ammonia (<30) umol/L Albumin (3.5-5.0) g/dL Assessment and Plan (1) Melena Narrative/Plan: 48-year-old male with a known history of alcohol liver disease who presents for concerns of a GI bleed. Patient had been at home and had noticed 2-3 days of d ark tarry bowel movements. No prior history of GI bleed. No upper endoscopy or colonoscopy in the past. Patient denies any NSAID use. No associated abdominal pain. Unclear etiology with differential including peptic ulcer disease, gastritis, esophagitis, AVM or other etiology. Varices less likely given hemodynamic stability and 11.6 on presentation. Current Visit: Yes Status: Acute Code(s): K92.1 - MELENA SNOMED Code(s): 9007050 (2) Acute blood loss anemia Current Visit: Yes Status: Acute Code(s): D62 - ACUTE POSTHEMORRHAGIC ANEMIA SNOMED Code(s): 837401598 (3) Alcoholic liver disease Current Visit: Yes Status: Acute Code(s): K70.9 - ALCOHOLIC LIVER DISEASE, UNSPECIFIED SNOMED Code(s): 36236736 Plan: Supportive care Continue to monitor hemoglobin and hematocrit and transfuse as needed Continue to monitor CBC, CMP Protonix 40 mg IV twice a day Avoid NSAID use We'll hold anticoagulation Plan for EGD for further evaluation tomorrow Continue ICU care Thank you for allowing us to participate in the care of this patient we will continue to follow
[2019-12-04 05:38] LABS: Basophils % (A) 1 %; Eosinophils # (A) 0.3 k/uL (0-0.7); Eosinophils % (A) 5 %; HCT 29.2 % (39.0-53.0); HGB 9.4 gm/dL (13.0-17.5); Lymphocytes # (A) 1.8 k/uL (1.0-4.8); Lymphocytes % (A) 33 %; MCH 35.1 pg (25.0-35.0); MCHC 32.1 g/dL (31.0-37.0); MCV 109.3 fL (80.0-100.0); Mean Platelet Volume 10.4; Monocytes # (A) 0.2 k/uL (0-1.0); Monocytes % (A) 3 %; Neutrophils # (A) 3.1 k/uL (1.3-7.7); Neutrophils % (A) 57 %; RBC 2.67 m/uL (4.30-5.90); RDW 14.7 % (11.5-15.5); WBC 5.5 k/uL (3.8-10.6)
[2019-12-04 05:51] LABS: INR 1.5 (<1.2); Prothrombin Time 14.6 sec (9.0-12.0)
[2019-12-04 05:58] LABS: Macrocytosis Marked; Platelet Count 57 k/uL (150-450)
[2019-12-04 06:21] LABS: ALT 37 U/L (4-49); AST 100 U/L (17-59); African American GFR (CKD) >90 (>60 ml/min/1.73 sqM); Albumin 2.7 g/dL (3.5-5.0); Alkaline Phosphatase 104 U/L (38-126); Anion Gap 6 mmol/L; Blood Urea Nitrogen 20 mg/dL (9-20); Calcium 7.4 mg/dL (8.4-10.2); Carbon Dioxide 25 mmol/L (22-30); Chloride 107 mmol/L (98-107); Glucose 119 mg/dL (74-99); Magnesium 1.6 mg/dL (1.6-2.3); Non-African American GFR(CKD) >90 (>60 ml/min/1.73 sqM); Potassium 4.1 mmol/L (3.5-5.1); Sodium 138 mmol/L (137-145); Total Bilirubin 4.1 mg/dL (0.2-1.3)
[2019-12-04] MEDS ORDERED: Magnesium Replacement Protocol 1 EACH MISC MISCELLANE PRN (06:25)
[2019-12-04] MEDS: MAGNESIUM SULFATE-D5W PMX 1 GM in DEXTROSE/WATER 1 100ML.BAG IVPB SCH ×2 (06:31→09:44)
--- NOTE | 2019-12-04 08:20 | P.PN ---
Subjective Progress Note Date: 12/04/19 Principal diagnosis: acute GI blood loss anemia 48-year-old patient of Dr. Pedro Campbell with past medical history of chronic liver disease related to history of EtOH abuse, patient follows with Dr. Randhawa from GI services. Other medical history is that of hypertension, anxiety, lifetime nonsmoker. No history of diabetes, no history of heart disease, no surgical procedures. She presents to the emergency department on 12/03/2019 little after midnight with a 2 day history of melanotic stools, and last night patient started having dark vomitus, patient had 2 or 3 episodes of ground emesis at home, and one more once he arrived to the emergency department. Admission blood work showed a white blood cell count of 10.0, hemoglobin of 11.6. Platelet count of 95, INR 1.5, electrolytes were within normal limits, BUN 17, creatinine 0.65, lactic acid was 2.7, total bilirubin was 2.6, AST was 148, ALT was 54, alkaline phosphatase was 158, ammonia level was 50, amylase and lipase were both within normal limits, serum alcohol level was 75, patient states he regularly drinks 6-8 tall beers on a daily basis, and his last drink was 2 days ago. Patient was given a liter IV fluid bolus, she was started on PPI therapy, he was given octreotide infusion, tranexamic acid infusion. Currently blood pressure is 141/84, patient still remains tachycardic in sinus mechanism with a rate of 116-124 BPM. Room air pulse ox is 92%, patient denies any shortness of breath, no chest pain, no abdominal pain. IV maintenance fluids infusing at a rate of 100 ML per hour. No further vomiting or melena, awaiting GI evaluation, awaiting admission to the intensive care unit. On 12/04/2019 patient seen in follow-up in the intensive care unit, he is resting comfortably in bed, he had one episode of a small black tarry stool last night, this morning's labs were reviewed, showing white blood cell count of 5.5, hemoglobin of 9.4, platelet count is 57, INR is 1.5, ammonia level is down to 48, total bilirubin is 4.1, AST is 100, ALT 37, alkaline phosphatase is 104. Remains on IV fluids of 0.9 normal saline at a rate of 100, and octreotide infusion is at 25 mg per hour. No nausea, no vomiting, no shortness of breath, no chest pain. Objective - Vital Signs Vital signs: Vital Signs Temp 98 F 12/04/19 04:00 Pulse 93 12/04/19 08:00 Resp 14 12/04/19 08:00 BP 119/73 12/04/19 08:00 Pulse Ox 92 L 12/04/19 08:00 Intake & Output 12/03/19 12/04/19 12/04/19 18:59 06:59 18:59 Intake Total 2237.5 1423.542 100 Output Total 550 775 460 Balance 1687.5 648.542 -360 Weight 89.5 kg Intake: IV 1100 100 Sodium Chloride 0.9% 1, 1100 100 000 ml @ 100 mls/hr IV . Q10H [facility]A Rx#:[id number] Intake, IV Titration 2237.5 323.542 Amount Lactated Ringers 1,000 ml 300 @ 100 mls/hr IV .Q10H [facility]A Rx#:[id number] Octreotide 500 mcg In 87.5 223.542 Sodium Chloride 0.9% 250 ml @ 25 MCG/HR 12.5 mls/ hr IV .Q20H [facility]A Rx#: [id number] Phytonadione 10 mg In 50 Sodium Chloride 0.9% 50 ml @ 100 mls/hr IVPB ONCE STA Rx#:[id number] Sodium Chloride 0.9% 1, 800 100 000 ml @ 100 mls/hr IV . Q10H [facility] Rx#:[id number] Sodium Chloride 0.9% 1, 1000 000 ml @ 999 mls/hr IV . Q1H1M ONE Rx#:[id number] Output: Urine 550 775 460 Other: # Voids 1 0 0 # Bowel Movements 1 - Exam GENERAL EXAM: Alert, very pleasant, 48-year-old white male, on room air, with a pulse ox of 92-94%, comfortable in no apparent distress. Tachycardic on the monitor, in sinus mechanism with a rate of 116-124 BPM HEAD: Normocephalic/atraumatic. EYES: Normal reaction of pupils, equal size. Conjunctiva pink, sclera white. NOSE: Clear with pink turbinates. THROAT: No erythema or exudates. NECK: No masses, no JVD, no thyroid enlargement, no adenopathy. CHEST: No chest wall deformity. Symmetrical expansion. LUNGS: Equal air entry with no crackles, wheeze, rhonchi or dullness. CVS: Regular rate and rhythm, normal S1 and S2, no gallops, no murmurs, no rubs ABDOMEN: Soft, nontender. No hepatosplenomegaly, normal bowel sounds, no guarding or rigidity. EXTREMITIES: No clubbing, no edema, no cyanosis, 2+ pulses and upper and lower extremities. MUSCULOSKELETAL: Muscle strength and tone normal. SPINE: No scoliosis or deformity SKIN: No rashes CENTRAL NERVOUS SYSTEM: Alert and oriented -3. No focal deficits, tone is normal in all 4 extremities. PSYCHIATRIC: Alert and oriented -3. Appropriate affect. Intact judgment and insight. - Labs CBC & Chem 7: 12/04/19 05:25 12/04/19 05:25 Labs: Abnormal Lab Results - Last 24 Hours (Table) 12/03/19 12/03/19 12/03/19 Range/Units 08:46 12:21 19:44 RBC 2.66 L (4.30-5.90) m/uL Hgb 9.4 L D (13.0-17.5) gm/dL Hct 29.4 L (39.0-53.0) % MCV 110.6 H (80.0-100.0) fL MCH 35.4 H (25.0-35.0) pg Plt Count 60 L (150-450) k/uL Macrocytosis Marked A PT (9.0-12.0) sec INR (<1.2) Glucose (74-99) mg/dL POC Glucose (mg/dL) 129 H 125 H (75-99) mg/dL Calcium (8.4-10.2) mg/dL Total Bilirubin (0.2-1.3) mg/dL AST (17-59) U/L Ammonia (<30) umol/L Total Protein (6.3-8.2) g/dL Albumin (3.5-5.0) g/dL 12/04/19 12/04/19 12/04/19 Range/Units 01:04 05:25 05:25 RBC 2.57 L 2.67 L (4.30-5.90) m/uL Hgb 9.3 L 9.4 L (13.0-17.5) gm/dL Hct 28.2 L 29.2 L (39.0-53.0) % MCV 109.8 H 109.3 H (80.0-100.0) fL MCH 36.0 H 35.1 H (25.0-35.0) pg Plt Count 52 L 57 L (150-450) k/uL Macrocytosis Marked A Marked A PT 14.6 H (9.0-12.0) sec INR 1.5 H (<1.2) Glucose (74-99) mg/dL POC Glucose (mg/dL) (75-99) mg/dL Calcium (8.4-10.2) mg/dL Total Bilirubin (0.2-1.3) mg/dL AST (17-59) U/L Ammonia (<30) umol/L Total Protein (6.3-8.2) g/dL Albumin (3.5-5.0) g/dL 12/04/19 12/04/19 Range/Units 05:25 05:25 RBC (4.30-5.90) m/uL Hgb (13.0-17.5) gm/dL Hct (39.0-53.0) % MCV (80.0-100.0) fL MCH (25.0-35.0) pg Plt Count (150-450) k/uL Macrocytosis PT (9.0-12.0) sec INR (<1.2) Glucose 119 H (74-99) mg/dL POC Glucose (mg/dL) (75-99) mg/dL Calcium 7.4 L (8.4-10.2) mg/dL Total Bilirubin 4.1 H (0.2-1.3) mg/dL AST 100 H (17-59) U/L Ammonia 48 H (<30) umol/L Total Protein 6.0 L (6.3-8.2) g/dL Albumin 2.7 L (3.5-5.0) g/dL Assessment and Plan Plan: Assessment: #1. Acute GI blood loss anemia, likely related to upper GI, patient presented with a 2 day history of black tarry stools, and coffee ground emesis, admission hemoglobin was 11.6 #2. Mild lactic acidosis, not related to sepsis, in a patient with history of chronic liver disease. However patient is thought to be intravascularly depleted, and was fluid resuscitated with 1 L IV bolus, patient will receive an additional liter of IV fluids #3. Chronic EtOH abuse, patient drinks 6-8 beers on a daily basis, last drink was 48 hours ago #4. Hypertension #5. Coagulopathy, was elevated at 1.5 #6. Chronic liver disease due to history of EtOH abuse #7. Anxiety #8. Lifetime nonsmoker Plan: Continue medical treatment, PPI therapy, octreotide infusion, hemodynamically patient is stable, continue IV fluids at 100, patient is awaiting EGD at noon today, he has been nothing by mouth after midnight. I performed a history & physical examination of the patient and discussed their management with my nurse practitioner, Ann Marie Davila. I reviewed the nurse practitioner's note and agree with the documented findings and plan of care. Lung sounds are positive for clear breath sounds. The findings and the impression was discussed with the patient. I attest to the documentation by the nurse practitioner. Time with Patient: Less than 30
[2019-12-04] MEDS: PANTOPRAZOLE 40 MG/10 ML VIAL IV SCH ×2 (09:44→21:54)
[2019-12-04] MEDS: SODIUM CHLORIDE 0.9% 1,000 ML IV SCH ×2 (09:50→18:03)
[2019-12-04] MEDS: LORazepam 2 MG/ML INJ IV PRN (09:59)
--- NOTE | 2019-12-04 12:04 | P.PN ---
Subjective Patient evaluated by intensivists and gastroenterology plan for EGD today. Will order ultrasound of abdomen to assess for abdominal ascites. Patient denies any further vomiting denies any pain states he has had some black stool Objective - Vital Signs Vital signs: Vital Signs Temp 98 F 12/04/19 04:00 Pulse 93 12/04/19 08:00 Resp 14 12/04/19 08:00 BP 119/73 12/04/19 08:00 Pulse Ox 92 L 12/04/19 08:00 Intake & Output 12/03/19 12/04/19 12/04/19 18:59 06:59 18:59 Intake Total 2237.5 1423.542 100 Output Total 550 775 460 Balance 1687.5 648.542 -360 Weight 89.5 kg Intake: IV 1100 100 Sodium Chloride 0.9% 1, 1100 100 000 ml @ 100 mls/hr IV . Q10H MARA Rx#:[id number] Intake, IV Titration 2237.5 323.542 Amount Lactated Ringers 1,000 ml 300 @ 100 mls/hr IV .Q10H MARA Rx#:[id number] Octreotide 500 mcg In 87.5 223.542 Sodium Chloride 0.9% 250 ml @ 25 MCG/HR 12.5 mls/ hr IV .Q20H MARA Rx#: [id number] Phytonadione 10 mg In 50 Sodium Chloride 0.9% 50 ml @ 100 mls/hr IVPB ONCE STA Rx#:[id number] Sodium Chloride 0.9% 1, 800 100 000 ml @ 100 mls/hr IV . Q10H MARA Rx#:[id number] Sodium Chloride 0.9% 1, 1000 000 ml @ 999 mls/hr IV . Q1H1M ONE Rx#:[id number] Output: Urine 550 775 460 Other: # Voids 1 0 0 # Bowel Movements 1 - Constitutional General appearance: Present: mild distress - EENT Eyes: Present: PERRLA Ears: bilateral: normal - Neck Neck: Present: normal ROM - Respiratory Respiratory: bilateral: CTA - Cardiovascular Rhythm: regular - Gastrointestinal General gastrointestinal: Present: absent bowel sounds, distended, soft - Integumentary Integumentary Comment(s): Hay complexion - Neurologic Neurologic: Present: CNII-XII intact - Psychiatric Psychiatric: Present: A&O x's 3, appropriate affect, intact judgment & insight - Labs CBC & Chem 7: 12/04/19 05:25 12/04/19 05:25 Labs: Abnormal Lab Results - Last 24 Hours (Table) 12/03/19 12/03/19 12/04/19 Range/Units 12:21 19:44 01:04 RBC 2.66 L 2.57 L (4.30-5.90) m/uL Hgb 9.4 L D 9.3 L (13.0-17.5) gm/dL Hct 29.4 L 28.2 L (39.0-53.0) % MCV 110.6 H 109.8 H (80.0-100.0) fL MCH 35.4 H 36.0 H (25.0-35.0) pg Plt Count 60 L 52 L (150-450) k/uL Macrocytosis Marked A Marked A PT (9.0-12.0) sec INR (<1.2) Glucose (74-99) mg/dL POC Glucose (mg/dL) 125 H (75-99) mg/dL Calcium (8.4-10.2) mg/dL Total Bilirubin (0.2-1.3) mg/dL AST (17-59) U/L Ammonia (<30) umol/L Total Protein (6.3-8.2) g/dL Albumin (3.5-5.0) g/dL 12/04/19 12/04/19 12/04/19 Range/Units 05:25 05:25 05:25 RBC 2.67 L (4.30-5.90) m/uL Hgb 9.4 L (13.0-17.5) gm/dL Hct 29.2 L (39.0-53.0) % MCV 109.3 H (80.0-100.0) fL MCH 35.1 H (25.0-35.0) pg Plt Count 57 L (150-450) k/uL Macrocytosis Marked A PT 14.6 H (9.0-12.0) sec INR 1.5 H (<1.2) Glucose 119 H (74-99) mg/dL POC Glucose (mg/dL) (75-99) mg/dL Calcium 7.4 L (8.4-10.2) mg/dL Total Bilirubin 4.1 H (0.2-1.3) mg/dL AST 100 H (17-59) U/L Ammonia (<30) umol/L Total Protein 6.0 L (6.3-8.2) g/dL Albumin 2.7 L (3.5-5.0) g/dL 12/04/19 Range/Units 05:25 RBC (4.30-5.90) m/uL Hgb (13.0-17.5) gm/dL Hct (39.0-53.0) % MCV (80.0-100.0) fL MCH (25.0-35.0) pg Plt Count (150-450) k/uL Macrocytosis PT (9.0-12.0) sec INR (<1.2) Glucose (74-99) mg/dL POC Glucose (mg/dL) (75-99) mg/dL Calcium (8.4-10.2) mg/dL Total Bilirubin (0.2-1.3) mg/dL AST (17-59) U/L Ammonia 48 H (<30) umol/L Total Protein (6.3-8.2) g/dL Albumin (3.5-5.0) g/dL Assessment and Plan Plan: Assessment GI bleed hematemesis hematochezia History of hypertension Alcohol abuse 6-8 beers daily Mild lactic acidosis not septic Coagulopathy secondary to alcoholism Anemia acute blood loss Plan Continues in intensive care unit 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
[2019-12-04] MEDS ORDERED: LIDOCAINE 1% INJ 10MG/ML (20 ML MDV) ONE (12:19)
[2019-12-04] MEDS ORDERED: SODIUM CHLORIDE 0.9% 500 ML IV ONE (12:19)
[2019-12-04] MEDS ORDERED: PROPOFOL 10 MG/ML 20 ML VIAL IV ONE (12:19)
--- NOTE | 2019-12-04 12:51 | P.PCN ---
Date of Procedure: 12/04/19 Description of Procedure: BRIEF HISTORY: 48-year-old male with a medical history significant for alcohol abuse, hypertension and suspected alcoholic cirrhosis who presented to the hospital due to concerns over GI bleed. The patient had been having dark-colored stool over the past 2-3 days prior to admission. He reports 6-8 dark tarry bowel movements. No gross bleeding noted with the bowel movements. No abdominal pain reported in association with a change in bowels. The patient has no prior history of ascites, GI bleed or encephalopathy. He has been seen in the GI clinic for evaluation of suspected alcoholic cirrhosis. No prior history of peptic ulcer disease or NSAID use. The patient has not had an EGD or colonoscopy in the past. Laboratory evaluation on presentation was significant for INR of 1.5, WBC 10, hemoglobin 11.6, platelet count 95,000, MCV 107, total bilirubin 2.6, alkaline phosphatase 158, AST 148, ALT 54, amylase 72, lipase 219. PROCEDURE PERFORMED: Esophagogastroduodenoscopy with biopsies. PREOPERATIVE DIAGNOSIS: Melena, GI bleed, anemia acute blood loss. ESTIMATED BLOOD LOSS: Minimal. IV sedation per anesthesia. PROCEDURE: After informed consent was obtained, the patient was brought into the endoscopy unit. IV sedation was administered by Anesthesia under continuous monitoring. Initially the Olympus GIF-190 video endoscope was inserted into the mouth. Esophagus intubated without any difficulty. It was gradually advanced into the stomach and duodenum and carefully examined. The bulb and the second part of the duodenum appeared normal. The scope at this time was withdrawn to the stomach, adequately insufflated with air, and upon careful examination, mucosa of the antrum, body, cardia and the fundus appeared grossly normal except for some mild scattered erythema in the antrum and body as well as 3 superficial nonbleeding subcentimeter antral ulcers without high-risk stigmata for rebleeding. Biopsies of the antrum and body were taken. The scope was then withdrawn into the esophagus. The GE junction was located at 41 cm from the incisors. The esophagus appeared normal. There were no erosions or ulcerations seen and the patient tolerated the procedure well. IMPRESSION: 1. 3 superficial nonbleeding antral ulcers without high-risk stigmata for bleeding. 2. Mild gastritis antrum body, biopsied. RECOMMENDATIONS: The findings of this examination were discussed with the patient and his . Okay to start sodium restricted diet. Continue Protonix twice daily. Okay to discontinue octreotide therapy. Await pathology from biopsies. Follow up in gastroenterology clinic as previously scheduled.
--- NOTE | 2019-12-04 14:25 | US ---
EXAMINATION TYPE: US abdomen limited DATE OF EXAM: 12/04/2019 COMPARISON: Liver ultrasound dated 06/10/2019 CLINICAL HISTORY: liver disease, ascites. EXAM MEASUREMENTS: Liver Length: 19.4 cm Gallbladder Wall: 0.2 cm CBD: 0.4 cm Right Kidney: 11.7 x 4.9 x 5.5 cm Pancreas: wnl as visualized, somewhat obscured Liver: Enlarged. Diffusely heterogeneous, diminished visualization of vessels Gallbladder: Trace pericholecystic fluid is redemonstrated Evidence for sonographic Farias's sign: no CBD: wnl Right Kidney: No hydronephrosis or masses seen No evident ascites. IMPRESSION: 1. Enlarged and diffusely heterogenous hepatic echotexture in keeping with this patient's known hepat ocellular disease. Scant amount of pericholecystic fluid is redemonstrated and presumed to be on the basis of the adjacent hepatocellular disease given the prior negative HIDA scan. 2. No surrounding abdominal ascites.
[2019-12-04] MEDS: SERTRALINE 50 MG TAB PO SCH (15:33)
[2019-12-04] MEDS: LISINOPRIL-HCTZ 20-12.5 MG 1 EACH TAB PO SCH (15:33)
[2019-12-04 18:45] LABS: HCT 30.1 % (39.0-53.0); HGB 9.7 gm/dL (13.0-17.5); MCH 35.6 pg (25.0-35.0); MCHC 32.3 g/dL (31.0-37.0); MCV 110.3 fL (80.0-100.0); Macrocytosis Marked; Mean Platelet Volume 8.8; RBC 2.73 m/uL (4.30-5.90); RDW 14.6 % (11.5-15.5); WBC 6.8 k/uL (3.8-10.6)
[2019-12-04 18:48] LABS: Platelet Count 65 k/uL (150-450)
[2019-12-05] MEDS: SODIUM CHLORIDE 0.9% 1,000 ML IV SCH (05:20)
[2019-12-05 05:37] LABS: African American GFR (CKD) >90 (>60 ml/min/1.73 sqM); Anion Gap 3 mmol/L; Blood Urea Nitrogen 14 mg/dL (9-20); Calcium 7.5 mg/dL (8.4-10.2); Carbon Dioxide 28 mmol/L (22-30); Chloride 106 mmol/L (98-107); Glucose 102 mg/dL (74-99); Non-African American GFR(CKD) >90 (>60 ml/min/1.73 sqM); Potassium 3.7 mmol/L (3.5-5.1); Sodium 137 mmol/L (137-145)
[2019-12-05 05:39] LABS: Basophils # (A) 0.1 k/uL (0-0.2); Basophils % (A) 1 %; Eosinophils # (A) 0.4 k/uL (0-0.7); Eosinophils % (A) 8 %; HCT 28.1 % (39.0-53.0); HGB 9.1 gm/dL (13.0-17.5); Lymphocytes # (A) 1.3 k/uL (1.0-4.8); Lymphocytes % (A) 23 %; MCH 35.4 pg (25.0-35.0); MCHC 32.3 g/dL (31.0-37.0); MCV 109.5 fL (80.0-100.0); Macrocytosis Marked; Mean Platelet Volume 9.4; Monocytes # (A) 0.3 k/uL (0-1.0); Monocytes % (A) 5 %; Neutrophils # (A) 3.4 k/uL (1.3-7.7); Neutrophils % (A) 62 %; RBC 2.56 m/uL (4.30-5.90); RDW 14.9 % (11.5-15.5); WBC 5.5 k/uL (3.8-10.6)
[2019-12-05 05:42] LABS: Platelet Count 53 k/uL (150-450)
--- NOTE | 2019-12-05 08:44 | P.PN ---
Subjective Progress Note Date: 12/05/19 His evaluation of 12/05/2019 the patient is within very well. He is hemodynamically stable. He underwent his endoscopy yesterday and the patient was found to have nonbleeding antral ulcers and some mild gastritis. He is currently on PPI. No further bouts of bleeding. The patient has a stable hemoglobin which is above 9. No other complaints otherwise for now. The patient is hemodynamically stable. She was given liquids overnight and the patient is being investigated regular diet. No nausea. No vomiting. No abdominal pain. No diarrhea. No altered mentation. No signs of any delirium tremens. Objective - Vital Signs Vital signs: Vital Signs Temp 98.5 F 12/05/19 08:05 Pulse 88 12/05/19 08:05 Resp 16 12/05/19 08:05 BP 120/75 12/05/19 08:05 Pulse Ox 92 L 12/05/19 08:05 Intake & Output 12/04/19 12/05/19 12/05/19 18:59 06:59 18:59 Intake Total 1200 Output Total 460 0 Balance 740 0 Intake: IV 700 Sodium Chloride 0.9% 1, 600 000 ml @ 100 mls/hr IV . Q10H MARA Rx#:[id number] Oral 500 Output: Urine 460 0 Other: # Voids 2 # Bowel Movements 1 - Exam The patient appeared well nourished and normally developed. Vital signs as documented. Head exam is unremarkable. No scleral icterus or corneal arcus noted. Neck is without jugular venous distension, thyromegaly, or carotid bruits. Carotid upstrokes are brisk bilaterally. Lungs are clear to auscultation and percussion. Cardiac exam reveals the PMI to be normally sized and situated. Rhythm is regular. First and second heart sounds normal. No murmurs, rubs or gallops. Abdominal exam reveals normal bowel sounds, no masses, no organomegaly and no aortic enlargement. Extremities are nonedematous and both femoral and pedal pulses are normal. - Labs CBC & Chem 7: 12/05/19 04:44 12/05/19 04:44 Labs: Abnormal Lab Results - Last 24 Hours (Table) 12/04/19 12/05/19 12/05/19 Range/Units 18:20 04:44 04:44 RBC 2.73 L 2.56 L (4.30-5.90) m/uL Hgb 9.7 L 9.1 L (13.0-17.5) gm/dL Hct 30.1 L 28.1 L (39.0-53.0) % MCV 110.3 H 109.5 H (80.0-100.0) fL MCH 35.6 H 35.4 H (25.0-35.0) pg Plt Count 65 L 53 L (150-450) k/uL Macrocytosis Marked A Marked A Glucose (74-99) mg/dL Calcium (8.4-10.2) mg/dL Ammonia 54 H (<30) umol/L 12/05/19 Range/Units 04:44 RBC (4.30-5.90) m/uL Hgb (13.0-17.5) gm/dL Hct (39.0-53.0) % MCV (80.0-100.0) fL MCH (25.0-35.0) pg Plt Count (150-450) k/uL Macrocytosis Glucose 102 H (74-99) mg/dL Calcium 7.5 L (8.4-10.2) mg/dL Ammonia (<30) umol/L Assessment and Plan Plan: #1. Acute GI of an upper GI source. The patient has some mild antral ulcers and gastritis. No signs of any active bleeding. Hemoglobin above 9. The patient is hemodynamically stable. He was given liquid diet and he is being gradually advanced and is up to regular diet this morning. He is on PPI and is taking Protonix for now #2. Mild lactic acidosis, recovered #3. Chronic EtOH abuse, patient drinks 6-8 beers on a daily basis, last drink was 48 hours ago #4. Hypertension #5. Coagulopathy, was elevated at 1.5 #6. Chronic liver disease due to history of EtOH abuse #7. Anxiety #8. Lifetime nonsmoker Plan Continue PPI. Advance diet. Transfer this patient out of the ICU. Possible discharge home today. Follow-up with gastroenterology. Avoid alcohol drinking. Avoid intake of any form of nonsteroidal anti-inflammatory medication for now. Pulmonary critical care we'll sign off.
[2019-12-05] MEDS: LISINOPRIL-HCTZ 20-12.5 MG 1 EACH TAB PO SCH (09:57)
[2019-12-05] MEDS: PANTOPRAZOLE 40 MG/10 ML VIAL IV SCH (09:57)
[2019-12-05] MEDS: SERTRALINE 50 MG TAB PO SCH (09:57)
[2019-12-05] MEDS ORDERED: LIDOCAINE 1% INJ 10MG/ML (20 ML MDV) ONE (12:19)
[2019-12-05] MEDS ORDERED: PROPOFOL 10 MG/ML 20 ML VIAL IV ONE (12:19)
--- NOTE | 2019-12-05 14:20 | P.DS ---
Providers Date of admission: 12/03/19 03:04 Expected date of discharge: 12/05/19 Attending physician: Pedro Campbell Consults: 12/03/19 03:02 Consult Physician Stat Consulting Provider: Brenda Delgadillo Consult Reason/Comments: ICU Do you want consulting provider notified?: Already Contacted Consult Physician Stat Consulting Provider: Jesus Brooks Consult Reason/Comments: GI bleed Do you want consulting provider notified?: Already Contacted Primary care physician: Pedro Campbell Hospital Course: Final diagnosis GI bleed hematemesis hematochezia History of hypertension Alcohol abuse 6-8 beers daily Mild lactic acidosis not septic Coagulopathy secondary to alcoholism Anemia acute blood loss Discharge disposition Patient is being discharged in a stable condition with guarded prognosis to home and will follow-up with primary care provider Dr. Campbell in the outpatient setting upon discharge. Patient will also follow-up with GI in the outpatient setting in 2 weeks. Patient will continue on Protonix twice daily upon discharge. Total time taken is 35 minutes. History of present illness This is a 48-year-old male who was recently admitted with complaints of black tarry stools for a few days and was being closely monitored. Patient also was having hematemesis with a dropping hemoglobin. Patient does have a history of alcohol abuse and drinks 6-8 beers daily. Patient was seen by GI and did an endoscope showing some superficial nonbleeding antral ulcers and some mild gastritis of the antrum body were biopsied. Patient was started on Protonix twice daily will continue upon discharge. Patient will follow-up with GI for biopsy results in 2-3 weeks. Discussed with the patient at length about avoiding all alcohol intake. Patient will need repeat labs in a few days to monitor hemoglobin. Patient is tolerating diet with no reports of nausea or vomiting. Patient denies any chest pain, shortness of breath, or palpitations. Patient is afebrile. Patient states that he feels he is ready to go home today. On exam vital signs are stable. Temp is 98.5F, pulse is 88, respirations are 16, blood pressure is 120/75, oxygen saturation is 92% on room air. Cardio S1, S2 are present. Respiratory system shows diminished breath sounds at the bases with no wheezing noted. Abdomen is soft and nontender. Nervous system shows no focal deficits. Please refer to medication reconciliation sheet for a list of medications. Patient Condition at Discharge: Critical Plan - Discharge Summary Discharge Rx Participant: No New Discharge Prescriptions: New Lisinopril 20 mg PO DAILY 30 Days #30 tab Pantoprazole Sodium [Protonix] 40 mg PO BID 30 Days #60 tablet. Continue Sertraline [Zoloft] 50 mg PO DAILY Discontinued Lisinopril-Hctz 20-12.5 mg [Zestoretic 20-12.5] 1 tab PO DAILY Discharge Medication List Sertraline [Zoloft] 50 mg PO DAILY 12/03/19 [History] Lisinopril 20 mg PO DAILY 30 Days #30 tab 12/05/19 [Rx] Pantoprazole Sodium [Protonix] 40 mg PO BID 30 Days #60 tablet. 12/05/19 [Rx] Follow up Appointment(s)/Referral(s): Pedro Campbell MD [Primary Care Provider] - 1-2 days Ambulatory/Diagnostic Orders: Complete Blood Count w/diff [LAB.AMB] Time Frame: 2 Days, Location: None Selected Patient Instructions/Handouts: Gastrointestinal Bleeding (DC), Abuse of Alcohol (DC), Alcoholic Hepatitis (DC) Activity/Diet/Wound Care/Special Instructions: Activity Limited until follow-up Follow-up with primary care provider upon discharge Follow-up with GI in 2 weeks Continue with Protonix twice daily Continue with current diet and advance slowly as tolerated Avoid all NSAIDs Avoid all alcohol intake Discharge Disposition: HOME SELF-CARE
[2019-12-05 14:22] VITALS: BP 121/86; PULSE 81; RESP 15; TEMP 98
== END 2019-12-05 15:04 | disposition home or self-care (01) | DRG 378 ==
LOC: EC 01:00 → 2SICU 03:04
PROVIDERS: ADMIT Family Medicine; ATTEND Family Medicine
PROC: 0DB78ZX Excision of Stomach, Pylorus, Via Natural or Artificial Opening Endoscopic, Diagnostic (ICD-10-PCS; principal; 2019-12-04 12:20)
PROC: 0DB68ZX Excision of Stomach, Via Natural or Artificial Opening Endoscopic, Diagnostic (ICD-10-PCS; principal; 2019-12-04 12:20)
DX: K29.71 Gastritis, unspecified, with bleeding (principal); D62 Acute posthemorrhagic anemia; E87.2 Acidosis; D68.9 Coagulation defect, unspecified; K25.4 Chronic or unspecified gastric ulcer with hemorrhage; F41.9 Anxiety disorder, unspecified; I10 Essential (primary) hypertension; Y90.3 Blood alcohol level of 60-79 mg/100 ml; K70.9 Alcoholic liver disease, unspecified; F10.20 Alcohol dependence, uncomplicated; Z79.899 Other long term (current) drug therapy; Z80.1 Family history of malignant neoplasm of trachea, bronchus and lung; Z83.49 Family history of other endocrine, nutritional and metabolic diseases; Z98.890 Other specified postprocedural states
CPT/HCPCS: 36415; 43239; 76705; 80048; 80053; 80320; 82140; 82150; 83605; 83690; 83735; 85025; 85027; 85610; 85730; 86850; 86900; 86901; 88305; 88342; 96361; 96365; 96366; 96367; 96372; 96374; 96375; 96376; 99291

== ENCOUNTER → 2019-12-08 | Outpatient (CLI) | payer OTHER ==
[2019-12-08 09:38] LABS: Basophils # (A) 0.1 k/uL (0-0.2); Basophils % (A) 1 %; Eosinophils # (A) 0.4 k/uL (0-0.7); Eosinophils % (A) 7 %; HCT 29.2 % (39.0-53.0); HGB 9.3 gm/dL (13.0-17.5); Lymphocytes # (A) 1.4 k/uL (1.0-4.8); Lymphocytes % (A) 22 %; MCH 35.1 pg (25.0-35.0); MCV 109.8 fL (80.0-100.0); Macrocytosis Marked; Mean Platelet Volume 9.5; Monocytes # (A) 0.4 k/uL (0-1.0); Monocytes % (A) 7 %; Neutrophils # (A) 3.7 k/uL (1.3-7.7); Neutrophils % (A) 59 %; RBC 2.66 m/uL (4.30-5.90); RDW 15.4 % (11.5-15.5); WBC 6.2 k/uL (3.8-10.6)
[2019-12-08 09:42] LABS: Platelet Count 67 k/uL (150-450)
[2019-12-08 10:49] LABS: Polychromasia Present
== END | disposition home or self-care (01) ==
LOC: LABWHC1 08:51
PROVIDERS: ATTEND Registered Nurse
DX: D64.9 Anemia, unspecified (principal)
CPT/HCPCS: 36415; 85025

== ENCOUNTER → 2019-12-10 | Outpatient (CLI) | payer OTHER ==
[2019-12-10 10:19] LABS: INR 1.3 (<1.2); Prothrombin Time 13.3 sec (9.0-12.0)
[2019-12-10 10:21] LABS: HCT 32.3 % (39.0-53.0); HGB 10.1 gm/dL (13.0-17.5); Hypochromasia Slight; MCH 34.1 pg (25.0-35.0); MCHC 31.3 g/dL (31.0-37.0); MCV 108.9 fL (80.0-100.0); Macrocytosis Marked; Mean Platelet Volume 8.9; RBC 2.96 m/uL (4.30-5.90); RDW 15.4 % (11.5-15.5)
[2019-12-10 10:22] LABS: Platelet Count 105 k/uL (150-450)
[2019-12-10 16:42] LABS: African American GFR (CKD) 128.4 (60.0-200.0); Albumin 3.3 g/dL (3.80-4.90); Albumin/Globulin Ratio 1.22 (1.60-3.17); Anion Gap 8.7 mmol/L (4.00-12.00); BUN/Creat Ratio 14.29 Ratio (12.00-20.00); Calcium 8.2 mg/dL (8.7-10.3); Carbon Dioxide 27.3 mmol/L (21.6-31.8); Globulin 2.7 g/dL (1.6-3.3); Non-African American GFR(CKD) 110.8 (60.0-200.0); Potassium 3.9 mmol/L (3.5-5.5); Total Bilirubin 2.5 mg/dL (0.2-1.2)
[2019-12-11 11:13] LABS: Anti-Endomysial IgA Antibody <1:10 Titer (<1:10)
[2019-12-11 11:25] LABS: Liver/Kidney Microsome Antibod 1.5 UNITS (<=20)
[2019-12-11 11:26] LABS: Smooth Muscle Antibody 26 UNITS (<20)
[2019-12-11 12:44] LABS: Albumin 3.02 g/dL (3.80-4.90); Gamma Globulin 1.54 g/dL (0.70-1.50)
[2019-12-11 15:12] LABS: C-ANCA <1:20 Titer (<1:20)
== END | disposition home or self-care (01) ==
LOC: LABWHC1 09:09
PROVIDERS: ATTEND Internal Medicine
DX: R74.8 Abnormal levels of other serum enzymes (principal)
CPT/HCPCS: 36415; 80053; 83516; 84165; 85027; 85610; 86038; 86255; 86376

== ENCOUNTER 2020-01-07 08:41 | Day surgery (SDC) | payer OTHER ==
[2020-01-07 09:20] LABS: Mean Platelet Volume 8.7; Platelet Count 147 k/uL (150-450)
[2020-01-07 09:25] LABS: INR 1.3 (<1.2); Prothrombin Time 12.9 sec (9.0-12.0)
[2020-01-07] MEDS ORDERED: HYDROmorphone 1 MG/ML 1 ML SYRINGE IVP STA (09:54)
[2020-01-07 10:33] VITALS: RESP 16; TEMP 98.2
--- NOTE | 2020-01-07 11:11 | CT ---
EXAMINATION TYPE: CT biopsy liver DATE OF EXAM: 01/07/2020 COMPARISON: NONE HISTORY: Abnormal liver function studies CT DLP: 627mGycm The procedure was explained to the patient. The risks, complications, benefits, and alternatives wer e discussed and any questions were answered. Informed consent was obtained. Patient was placed supi ne on the CT table and prepped and draped in the usual sterile fashion. All elements of maximal barrier and sterile technique utilized. Utilizing CT guidance, an 18 gauge core biopsy needle access into the left lobe of the liver was ach ieved and a single 18 gauge core sample was obtained. The patient was stable throughout the procedur e and remained stable upon discharge. IMPRESSION: 1. Successful 18 gauge core biopsy of the liver.
[2020-01-07 11:58] VITALS: BP 109/59; PULSE 79
== END 2020-01-07 14:32 | disposition home or self-care (01) ==
LOC: RADPROMAIN 08:41 → 1SOBS 10:14 → RADPROMAIN 14:32
PROVIDERS: ATTEND Internal Medicine
DX: K74.60 Unspecified cirrhosis of liver (principal)
CPT/HCPCS: 85049; 85610; 88313; 88307; 96374; 36415; 47000; 77012; J1170

== ENCOUNTER 2020-01-10 19:05 | Inpatient (IN) | payer OTHER ==
--- NOTE | 2020-01-10 19:32 | ED ---
General Adult HPI - General Chief complaint: Skin/Abscess/Foreign Body Stated complaint: Rash-sent by [facility] Time Seen by Provider: 01/10/20 19:25 Source: patient, family, RN notes reviewed Mode of arrival: ambulatory Limitations: no limitations - History of Present Illness Initial comments: Patient is a pleasant 49-year-old male presenting to the emergency Department with concerns of left arm redness. Onset of symptoms was this morning. No inj ury. Patient was in the hospital for GI bleed not long ago however his IV was placed on the right arm. Patient does complain of some mild to moderate discomfort of the left arm. No history of similar symptoms previously. No fevers. No weakness. - Related Data Home Medications Medication Instructions Recorded Confirmed Sertraline [Zoloft] 50 mg PO DAILY 12/03/19 01/07/20 Furosemide [Lasix] 20 mg PO DAILY 12/17/19 01/07/20 Spironolactone 50 mg PO DAILY 12/17/19 01/07/20 Previous Rx's Medication Instructions Recorded Lisinopril 20 mg PO DAILY 30 Days #30 tab 12/05/19 Pantoprazole Sodium [Protonix] 40 mg PO BID 30 Days #60 tablet. 12/05/19 Allergies Allergy/AdvReac Type Severity Reaction Status Date / Time No Known Allergies Allergy Verified 01/10/20 19:21 Review of Systems ROS Statement: Those systems with pertinent positive or pertinent negative responses have been documented in the HPI. ROS Other: All systems not noted in ROS Statement are negative. Constitutional: Denies: fever Eyes: Denies: eye pain ENT: Denies: ear pain Respiratory: Denies: cough Cardiovascular: Denies: chest pain Endocrine: Denies: fatigue Gastrointestinal: Denies: abdominal pain Genitourinary: Denies: dysuria Musculoskeletal: Denies: back pain Skin: Reports: as per HPI, rash Neurological: Denies: weakness Past Medical History Past Medical History: Hypertension, Liver Disease Additional Past Medical History / Comment(s): ETOH abuse (6-8 beers a day, "the [employer]"), liver failure. plans to attend rehab for alcohol addiction - 12/18/2019 History of Any Multi-Drug Resistant Organisms: None Reported Past Surgical History: Hernia Repair Additional Past Surgical History / Comment(s): bilateral Inguinal Herniea repair Past Anesthesia/Blood Transfusion Reactions: No Reported Reaction Past Psychological History: Anxiety Smoking Status: Never smoker Past Alcohol Use History: Abuse, Heavy Past Drug Use History: None Reported - Past Family History Father Family Medical History: Cancer Additional Family Medical History / Comment(s): Passed from Lung [place], heavy smoker Mother Family Medical History: Cancer Additional Family Medical History / Comment(s): Passed from [place] Sister(s) Family Medical History: Thyroid Disorder General Exam Limitations: no limitations General appearance: alert, in no apparent distress Head exam: Present: normocephalic Eye exam: Present: normal appearance, PERRL ENT exam: Present: normal oropharynx Neck exam: Present: normal inspection Respiratory exam: Present: normal lung sounds bilaterally Cardiovascular Exam: Present: regular rate, normal rhythm Expanded Peripheral pulses: 2+: Radial (L) GI/Abdominal exam: Present: soft. Absent: tenderness Extremities exam: Present: other (Left arm on the volar side with erythema from the area above the wrist to below the axilla. There is warmth. There is some tenderness. There is some mild swelling. Distally the extremity is neurovas cular intact.) Neurological exam: Present: alert Psychiatric exam: Present: normal affect, normal mood Skin exam: Present: erythema Course Vital Signs 01/10/20 19:18 Temperature 98.1 F Pulse Rate 97 Respiratory 20 Rate Blood Pressure 120/83 O2 Sat by Pulse 100 Oximetry Medical Decision Making - Medical Decision Making Patient reevaluated and resting comfortably at bedside. Patient and family updated on results and plan. Case discussed with Dr. Oliveira, who will admit For Dr. Campbell. - Lab Data Result diagrams: 01/10/20 19:43 01/10/20 19:43 Lab Results 01/10/20 01/10/20 01/10/20 Range/Units 19:43 19:43 19:43 WBC 9.6 (3.8-10.6) k/uL RBC 3.24 L (4.30-5.90) m/uL Hgb 10.8 L (13.0-17.5) gm/dL Hct 32.0 L (39.0-53.0) % MCV 98.9 D (80.0-100.0) fL MCH 33.4 (25.0-35.0) pg MCHC 33.7 (31.0-37.0) g/dL RDW 13.4 (11.5-15.5) % Plt Count 134 L (150-450) k/uL Neutrophils % 63 % Lymphocytes % 21 % Monocytes % 6 % Eosinophils % 7 % Basophils % 0 % Neutrophils # 6.0 (1.3-7.7) k/uL Lymphocytes # 2.0 (1.0-4.8) k/uL Monocytes # 0.6 (0-1.0) k/uL Eosinophils # 0.7 (0-0.7) k/uL Basophils # 0.0 (0-0.2) k/uL PT 12.6 H (9.0-12.0) sec INR 1.2 H (<1.2) APTT 27.6 (22.0-30.0) sec Sodium 128 L (137-145) mmol/L Potassium 4.3 (3.5-5.1) mmol/L Chloride 95 L (98-107) mmol/L Carbon Dioxide 20 L (22-30) mmol/L Anion Gap 13 mmol/L BUN 17 (9-20) mg/dL Creatinine 1.04 (0.66-1.25) mg/dL Est GFR (CKD-EPI)AfAm >90 (>60 ml/min/1.73 sqM) Est GFR (CKD-EPI)NonAf 84 (>60 ml/min/1.73 sqM) Glucose 93 (74-99) mg/dL Plasma Lactic Acid Michele (0.7-2.0) mmol/L Calcium 9.1 (8.4-10.2) mg/dL Total Bilirubin 2.0 H (0.2-1.3) mg/dL AST 70 H (17-59) U/L ALT 30 (4-49) U/L Alkaline Phosphatase 139 H (38-126) U/L Total Protein 7.8 (6.3-8.2) g/dL Albumin 3.9 (3.5-5.0) g/dL 01/10/20 Range/Units 19:43 WBC (3.8-10.6) k/uL RBC (4.30-5.90) m/uL Hgb (13.0-17.5) gm/dL Hct (39.0-53.0) % MCV (80.0-100.0) fL MCH (25.0-35.0) pg MCHC (31.0-37.0) g/dL RDW (11.5-15.5) % Plt Count (150-450) k/uL Neutrophils % % Lymphocytes % % Monocytes % % Eosinophils % % Basophils % % Neutrophils # (1.3-7.7) k/uL Lymphocytes # (1.0-4.8) k/uL Monocytes # (0-1.0) k/uL Eosinophils # (0-0.7) k/uL Basophils # (0-0.2) k/uL PT (9.0-12.0) sec INR (<1.2) APTT (22.0-30.0) sec Sodium (137-145) mmol/L Potassium (3.5-5.1) mmol/L Chloride (98-107) mmol/L Carbon Dioxide (22-30) mmol/L Anion Gap mmol/L BUN (9-20) mg/dL Creatinine (0.66-1.25) mg/dL Est GFR (CKD-EPI)AfAm (>60 ml/min/1.73 sqM) Est GFR (CKD-EPI)NonAf (>60 ml/min/1.73 sqM) Glucose (74-99) mg/dL Plasma Lactic Acid Michele 1.0 (0.7-2.0) mmol/L Calcium (8.4-10.2) mg/dL Total Bilirubin (0.2-1.3) mg/dL AST (17-59) U/L ALT (4-49) U/L Alkaline Phosphatase (38-126) U/L Total Protein (6.3-8.2) g/dL Albumin (3.5-5.0) g/dL - Radiology Data Radiology results: report reviewed (Ultrasound negative for DVT) Disposition Clinical Impression: Cellulitis of left arm Disposition: ADMITTED IP TO THIS HOSP Is patient prescribed a controlled substance at d/c from ED?: No Referrals: Pedro Campbell MD [Primary Care Provider] - 1-2 days Decision Time: 20:42
[2020-01-10 19:59] LABS: Basophils % (A) 0 %; Eosinophils # (A) 0.7 k/uL (0-0.7); Eosinophils % (A) 7 %; HGB 10.8 gm/dL (13.0-17.5); Lymphocytes % (A) 21 %; MCH 33.4 pg (25.0-35.0); MCHC 33.7 g/dL (31.0-37.0); Mean Platelet Volume 7.8; Monocytes # (A) 0.6 k/uL (0-1.0); Monocytes % (A) 6 %; Neutrophils % (A) 63 %; Platelet Count 134 k/uL (150-450); RBC 3.24 m/uL (4.30-5.90); RDW 13.4 % (11.5-15.5); WBC 9.6 k/uL (3.8-10.6)
[2020-01-10 20:09] LABS: MCV 98.9 fL (80.0-100.0)
[2020-01-10 20:10] LABS: ALT 30 U/L (4-49); AST 70 U/L (17-59); African American GFR (CKD) >90 (>60 ml/min/1.73 sqM); Albumin 3.9 g/dL (3.5-5.0); Alkaline Phosphatase 139 U/L (38-126); Anion Gap 13 mmol/L; Blood Urea Nitrogen 17 mg/dL (9-20); Calcium 9.1 mg/dL (8.4-10.2); Carbon Dioxide 20 mmol/L (22-30); Chloride 95 mmol/L (98-107); Glucose 93 mg/dL (74-99); Non-African American GFR(CKD) 84 (>60 ml/min/1.73 sqM); Potassium 4.3 mmol/L (3.5-5.1); Sodium 128 mmol/L (137-145); Total Protein 7.8 g/dL (6.3-8.2)
[2020-01-10 20:13] LABS: INR 1.2 (<1.2); Partial Thromboplastin Time 27.6 sec (22.0-30.0); Prothrombin Time 12.6 sec (9.0-12.0)
--- NOTE | 2020-01-10 20:25 | US ---
EXAMINATION TYPE: US venous doppler duplex UE LT DATE OF EXAM: 01/10/2020 COMPARISON: NONE CLINICAL HISTORY: Pain erythema and swelling. Left arm redness superior to inner elbow and swelling. No recent IV's. SIDE PERFORMED: Left Left Arm: Negative for DVT. Area of redness scanned, edema visualized. IMPRESSION: No evidence of deep vein thrombosis in the left arm. There is subcutaneous edema.
[2020-01-10] MEDS: SODIUM CHLORIDE 0.9% 1,000 ML IV SCH (20:33)
[2020-01-10] MEDS ORDERED: MORPHINE SULFATE 4 MG/ML SYRINGE IV PRN (20:46)
[2020-01-10] MEDS ORDERED: NALOXONE 0.4 MG/ML 1 ML VIAL IV PRN (20:46)
[2020-01-10] MEDS ORDERED: CLINDAMYCIN 600 MG in DEXTROSE 5% IN WATER 50 ML IVPB STA ×2 (20:46)
[2020-01-10] MEDS: FAMOTIDINE 20 MG TAB PO SCH (21:16)
[2020-01-11] MEDS: SODIUM CHLORIDE 0.9% 1,000 ML IV SCH ×2 (04:48→11:07)
[2020-01-11] MEDS: CLINDAMYCIN 600 MG in DEXTROSE 5% IN WATER 50 ML IVPB SCH ×4 (05:44→13:07)
[2020-01-11 07:35] LABS: African American GFR (CKD) >90 (>60 ml/min/1.73 sqM); Anion Gap 10 mmol/L; Blood Urea Nitrogen 14 mg/dL (9-20); Calcium 8.8 mg/dL (8.4-10.2); Carbon Dioxide 22 mmol/L (22-30); Chloride 100 mmol/L (98-107); Glucose 100 mg/dL (74-99); Non-African American GFR(CKD) >90 (>60 ml/min/1.73 sqM); Potassium 4.8 mmol/L (3.5-5.1); Sodium 132 mmol/L (137-145)
[2020-01-11] MEDS: FAMOTIDINE 20 MG TAB PO SCH ×2 (09:19→20:57)
[2020-01-11] MEDS: ACETAMINOPHEN TAB 325 MG TAB PO PRN (09:20)
[2020-01-11] MEDS ORDERED: HYDROcodone/APAP 5-325MG 1 EACH TAB PO PRN (17:28)
[2020-01-11] MEDS ORDERED: ALPRAZolam 0.25 MG TAB PO PRN (17:28)
[2020-01-11] MEDS ORDERED: TEMAZEPAM 15 MG CAP PO PRN (17:28)
[2020-01-11] MEDS: AMPICILLIN-SULBACTAM 3 GM in SODIUM CHLORIDE 0.9% 100 ML IVPB SCH (18:03)
--- NOTE | 2020-01-11 19:11 | HP ---
HISTORY AND PHYSICAL DATE OF SERVICE: 01/11/2020 CHIEF COMPLAINTS: Pain and swelling of the left arm. HISTORY OF PRESENT ILLNESS: This 49-year-old gentleman with a past medical history of multiple medical problems including hypertension, liver disease, ETOH abuse, 6 to 8 beers a day, history of hernia repair, history of GI bleed, anxiety being followed by Dr. Pedro Campbell in the outpatient setting, was noted to have pain and swelling in the left arm with redness which is extending upwards. Because of increasing pain, patient came to [facility] and was admitted for further evaluation and treatment. The patient also had mild to moderate discomfort. Patient also had some scratches by his dog on the outer aspect of the left arm. There is no history of fever, rigors or chills. No history of headache, loss of consciousness or seizures. PAST MEDICAL HISTORY: History of hypertension, history of liver disease, ETOH, history of anxiety, depression. History of previous GI bleed. MEDICATIONS: Prior to admission are: 1. Aldactone 50 mg p.o. daily. 2. Zoloft 50 mg daily. 3. Protonix 40 mg daily. 4. Lisinopril 20 mg daily. 5. Lasix 20 mg daily. 6. Thiamine. 7. Multivitamins. 8. Calcium with magnesium. ALLERGIES: None. FAMILY HISTORY: Family history of lung cancer, heavy smoking. SOCIAL HISTORY: No history of smoking. History of alcohol intake as mentioned earlier. The patient is alcohol free for the last few weeks. REVIEW OF SYSTEMS: ENT: No diminished vision. No diminished hearing. Cardiovascular: No angina or palpitations. Respirations: As mentioned earlier. GI no nausea or vomiting. no dysuria. Central nervous system: No numbness or weakness. Allergy/Immunology: No asthma or hayfever. MUSCULOSKELETAL as mentioned earlier. HEMATOLOGY/ONCOLOGY: No history of anemia. Endocrine: No history of diabetes or hypothyroidism. CONSTITUTIONAL: As mentioned earlier. Dermatology: Negative. Rheumatology: Negative. Psychiatry: As mentioned earlier. PHYSICAL EXAMINATION: The patient is alert and oriented times three. Pulse 82, blood pressure 94/52, respirations 18, temperature 98.4, pulse ox 96% on room air. HEENT: Conjunctivae normal. NECK: No JVD. CARDIOVASCULAR: S1, S2 muffled. RESPIRATORY: Breath sounds diminished in the bases. A few scattered rhonchi and crackles. ABDOMEN: Soft, obese, nontender. No mass palpable. LEGS: No edema. No swelling. NERVOUS SYSTEM: Higher functions as mentioned earlier. Moves all 4 limbs. No focal motor or sensory deficits. Lymphatics: No lymph nodes palpable in the neck, axillae or groin. SKIN: No ulcer, rashes or bleeding. JOINTS: No active deforming arthropathy. Examination of the skin of the left arm had significant swelling and erythema present in the medial part extending into the upper arm, lower part of the upper arm. Otherwise some erythema and excoriation present on the outer side of the left arm throughout. LAB: Investigations at this time shows WBC 10.2, hemoglobin 10.8, and platelets 134. Sodium 128 and AST is 79, ALT 30, alkaline phosphatase 113. ASSESSMENT: 1. Acute cellulitis left upper limb. 2. History of dog scratches. 3. Anemia, normocytic. 4. Thrombocytopenia. 5. Mild coagulopathy of undetermined etiology. 6. Hyponatremia. 7. Increased AST with possible alcoholic hepatitis. Bilirubin is 2. 8. History of hypertension. 9. History of chronic liver disease. 10.History of hernia repair. 11.History of vasectomy. 12.History of anxiety. 13.History of nicotine dependence. 14.FULL CODE. RECOMMENDATIONS AND DISCUSSION: In this 49-year-old gentleman who presented with multiple complex medical issues, we will monitor the patient closely. I would recommend intravenous IV antibiotics in the form of IV Unasyn and I would also recommend infectious disease evaluation. Otherwise, we will continue to monitor. Resume the home medications. Prognosis guarded. DVT prophylaxis. Guarded prognosis. Further recommendations to follow. Discussed with the patient. A copy of this dictation being forwarded to Dr. Campbell, who is the primary physician. MMODL / IJN: [id number] /
[2020-01-11] MEDS: HEPARIN SODIUM,PORCINE 5,000 UNIT/ML 1 ML VIAL SQ SCH (20:57)
[2020-01-11] MEDS: PANTOPRAZOLE 40 MG TABLET PO SCH (20:57)
--- NOTE | 2020-01-12 00:12 | P.CONS ---
History of Present Illness - Reason for Consult Consult date: 01/11/20 left arm cellulitis Requesting physician: Antonio Womack - Chief Complaint left arm swelling and redness x few days - History of Present Illness Patient is a 49-year-old male presenting to the ER at [facility] yesterday with chief complaints of increasing pain swelling redness to the left upper extremity that apparently started about 3 days before presented to the hospital patient denies a history of any trauma or any skin color he noticed left forearm started getting more swollen red and painful with subsequent extension to the upper arm patient describing the pain to be dull aching to throbbing intensity about 5-10 and radiation currently no open wound or any blister and no drainage with the symptom the patient was evaluated by the ER physician on arrival to the ER the patient has been afebrile white count was normal Doppler ultrasound of the left upper extremity was negative for any DVT and the patient was started on Unasyn 3 g every 6 hours infectious disease was consulted for further recommendation about antibiotic therapy. Review of Systems Positive point has been mentioned in HPI rest of the systems are negative Past Medical History Past Medical History: Hypertension, Liver Disease Additional Past Medical History / Comment(s): ETOH abuse (6-8 beers a day), 25 days since last drink, resided in [place] 12/18/19 to 01/04/2020. History of Any Multi-Drug Resistant Organisms: None Reported Past Surgical History: Hernia Repair Additional Past Surgical History / Comment(s): bilateral Inguinal Herniea repair, vasectomy, liver biopsy 01/07/2020 Past Anesthesia/Blood Transfusion Reactions: No Reported Reaction Past Psychological History: Anxiety Smoking Status: Never smoker Additional Past Alcohol Use History / Comment(s): quit drinking alcohol 25 days ago, attended [place] for rehab 12/18/2019 to 01/04/2020. Past Drug Use History: None Reported - Past Family History Father Family Medical History: Cancer Additional Family Medical History / Comment(s): Passed from Lung CA, heavy smoker Mother Family Medical History: Cancer Additional Family Medical History / Comment(s): Passed from [place], possibly lung cancer Sister(s) Family Medical History: Thyroid Disorder Medications and Allergies Home Medications Medication Instructions Recorded Confirmed Type Sertraline [Zoloft] 50 mg PO DAILY 12/03/19 01/11/20 History Lisinopril 20 mg PO DAILY 30 Days #30 tab 12/05/19 01/11/20 Rx Pantoprazole Sodium [Protonix] 40 mg PO BID 30 Days #60 tablet. 12/05/19 01/11/20 Rx Furosemide [Lasix] 20 mg PO DAILY 12/17/19 01/11/20 History Spironolactone 50 mg PO DAILY 12/17/19 01/11/20 History Calcium Carb/Magnesium Ox,Carb 1 PO DAILY 01/11/20 History [Gurdeep-Mag 500-250 MG Chewable] Multivitamin [Multivitamins Adult 1 PO 01/11/20 History Gummies] Thiamine HCl [Vitamin B-1] 50 PO DAILY 01/11/20 History Allergies Allergy/AdvReac Type Severity Reaction Status Date / Time No Known Allergies Allergy Verified 01/11/20 11:48 Physical Exam Vitals: Vital Signs Temp Pulse Pulse Pulse Resp BP BP 01/11/20 15:00 98.5 F 82 18 94/52 01/11/20 08:01 98.1 F 99 16 107/64 01/11/20 01:39 98.3 F 93 17 94/53 01/10/20 23:00 86 16 01/10/20 21:40 98.1 F 86 16 101/58 01/10/20 21:13 98.5 F 86 18 126/81 01/10/20 19:18 98.1 F 97 20 120/83 Pulse Ox 01/11/20 15:00 96 01/11/20 08:01 95 01/11/20 01:39 94 L 01/10/20 23:00 01/10/20 21:40 96 01/10/20 21:13 97 01/10/20 19:18 100 Intake and Output 01/11/20 01/11/20 01/11/20 06:59 14:59 22:59 Other: Voiding Method Toilet # Voids 3 GENERAL DESCRIPTION: Middle-aged male lying in bed, no distress. No tachypnea or accessory muscle of respiration use. HEENT: Shows Pallor , no scleral icterus. Oral mucous membrane is dry. NECK: Trachea central, no thyromegaly. LUNGS: Unlabored breathing. Clear to auscultation anteriorly. No wheeze or crackle. HEART: S1, S2, regular rate and rhythm. ABDOMEN: Soft, no tenderness , guarding or rigidity EXTREMITIES: Left forearm and upper arm swollen and red however the redness has receded from the line that was placed slightly warm to touch no blister open wound or any drainage sKIN: No rash, no masses palpable. NEUROLOGICAL: The patient is awake, alert, oriented x3, mood and affect normal. Results CBC & Chem 7: 01/10/20 19:43 01/11/20 06:17 Labs: Abnormal Lab Results - Last 24 Hours (Table) 01/10/20 01/10/20 01/10/20 Range/Units 19:43 19:43 19:43 RBC 3.24 L (4.30-5.90) m/uL Hgb 10.8 L (13.0-17.5) gm/dL Hct 32.0 L (39.0-53.0) % Plt Count 134 L (150-450) k/uL PT 12.6 H (9.0-12.0) sec INR 1.2 H (<1.2) Sodium 128 L (137-145) mmol/L Chloride 95 L (98-107) mmol/L Carbon Dioxide 20 L (22-30) mmol/L Glucose (74-99) mg/dL Total Bilirubin 2.0 H (0.2-1.3) mg/dL AST 70 H (17-59) U/L Alkaline Phosphatase 139 H (38-126) U/L 01/11/20 Range/Units 06:17 RBC (4.30-5.90) m/uL Hgb (13.0-17.5) gm/dL Hct (39.0-53.0) % Plt Count (150-450) k/uL PT (9.0-12.0) sec INR (<1.2) Sodium 132 L (137-145) mmol/L Chloride (98-107) mmol/L Carbon Dioxide (22-30) mmol/L Glucose 100 H (74-99) mg/dL Total Bilirubin (0.2-1.3) mg/dL AST (17-59) U/L Alkaline Phosphatase (38-126) U/L Assessment and Plan Assessment: patient with extensive left upper extremity cellulitis in this patient who did have diffuse swelling redness likely streptococcal disease however the patient did have multiple scratch lozano on his arm which he is attributing to his dog scratching him may have been a contributing factor to the cellulitis clinically doubt MRSA infection (1) Cellulitis of left arm Current Visit: Yes Status: Acute Code(s): L03.114 - CELLULITIS OF LEFT UPPER LIMB SNOMED Code(s): 716376378 Plan: 1-Unasyn 3 g every 6 hours with the plan to finish therapy with oral antibiotics 2-keep the left arm elevated We will follow on clinical condition and cultures to further adjust medication if needed Thank you for this consultation we will follow the patient along with you Time with Patient: Greater than 30
[2020-01-12] MEDS: AMPICILLIN-SULBACTAM 3 GM in SODIUM CHLORIDE 0.9% 100 ML IVPB SCH ×5 (01:10→23:54)
[2020-01-12 07:52] LABS: Basophils % (A) 0 %; Eosinophils # (A) 0.6 k/uL (0-0.7); Eosinophils % (A) 12 %; HCT 30.9 % (39.0-53.0); HGB 10.2 gm/dL (13.0-17.5); Lymphocytes # (A) 1.1 k/uL (1.0-4.8); Lymphocytes % (A) 23 %; MCH 33.2 pg (25.0-35.0); MCHC 32.9 g/dL (31.0-37.0); MCV 100.8 fL (80.0-100.0); Mean Platelet Volume 7.9; Monocytes # (A) 0.4 k/uL (0-1.0); Monocytes % (A) 8 %; Neutrophils # (A) 2.7 k/uL (1.3-7.7); Neutrophils % (A) 54 %; Platelet Count 113 k/uL (150-450); RBC 3.06 m/uL (4.30-5.90); RDW 13.4 % (11.5-15.5)
[2020-01-12 08:13] LABS: African American GFR (CKD) >90 (>60 ml/min/1.73 sqM); Anion Gap 8 mmol/L; Blood Urea Nitrogen 12 mg/dL (9-20); Calcium 8.6 mg/dL (8.4-10.2); Carbon Dioxide 20 mmol/L (22-30); Chloride 104 mmol/L (98-107); Glucose 102 mg/dL (74-99); Non-African American GFR(CKD) >90 (>60 ml/min/1.73 sqM); Potassium 4.7 mmol/L (3.5-5.1); Sodium 132 mmol/L (137-145)
[2020-01-12] MEDS: FAMOTIDINE 20 MG TAB PO SCH (08:30)
[2020-01-12] MEDS: HEPARIN SODIUM,PORCINE 5,000 UNIT/ML 1 ML VIAL SQ SCH ×2 (08:31→22:04)
[2020-01-12] MEDS: LISINOPRIL 20 MG TAB PO SCH (08:31)
[2020-01-12] MEDS: SPIRONOLACTONE 25 MG TAB PO SCH (08:31)
[2020-01-12] MEDS: PANTOPRAZOLE 40 MG TABLET PO SCH ×2 (08:31→16:51)
[2020-01-12] MEDS: SERTRALINE 50 MG TAB PO SCH (08:31)
[2020-01-12] MEDS: FUROSEMIDE 20 MG TAB PO SCH (08:31)
--- NOTE | 2020-01-12 12:54 | P.PN ---
Subjective A pleasant 49-year-old male sitting up in a recliner today he reports he had had some redness on his left upper extremity, he denies any increased pain at the site, he states infectious disease has ordered IV antibiotics he is tolerating them at this time without any side effects. Objective - Vital Signs Vital signs: Vital Signs Temp 98.2 F 01/12/20 07:00 Pulse 82 01/11/20 20:41 Resp 16 01/12/20 07:00 BP 111/65 01/12/20 07:00 Pulse Ox 96 01/12/20 07:00 Intake & Output 01/11/20 01/12/20 01/12/20 18:59 06:59 18:59 Intake Total 200 Balance 200 Intake: Oral 200 Other: Voiding Method Toilet Toilet # Voids 3 2 - Constitutional General appearance: Present: mild distress - EENT Eyes: Present: PERRLA - Respiratory Respiratory: bilateral: CTA - Cardiovascular Rhythm: regular Heart sounds: normal: S1, S2 - Gastrointestinal General gastrointestinal: Present: normal bowel sounds, soft - Integumentary Integumentary Comment(s): Left upper extremity healing scratches from canine pet Left upper extremity erythema - Labs CBC & Chem 7: 01/12/20 07:38 01/12/20 07:38 Labs: Abnormal Lab Results - Last 24 Hours (Table) 01/12/20 01/12/20 Range/Units 07:38 07:38 RBC 3.06 L (4.30-5.90) m/uL Hgb 10.2 L (13.0-17.5) gm/dL Hct 30.9 L (39.0-53.0) % MCV 100.8 H (80.0-100.0) fL Plt Count 113 L (150-450) k/uL Sodium 132 L (137-145) mmol/L Carbon Dioxide 20 L (22-30) mmol/L Glucose 102 H (74-99) mg/dL Microbiology - Last 24 Hours (Table) 01/10/20 19:43 Blood Culture - Preliminary Blood No Growth after 24 hours - Imaging and Cardiology Venous US: report reviewed Assessment and Plan Plan: Assessment: Left upper extremity cellulitis IV antibiotic Unasyn every 6 hours History of dog scratches various stages of healing Anemia normocytic Thrombocytopenia Hyponatremia Elevated AST recent liver biopsy History of chronic liver disease History of anxiety Plan: Continue infectious disease consult Continue IV antibiotics
[2020-01-12] MEDS: ACETAMINOPHEN TAB 325 MG TAB PO PRN (16:51)
[2020-01-13] MEDS: AMPICILLIN-SULBACTAM 3 GM in SODIUM CHLORIDE 0.9% 100 ML IVPB SCH ×2 (05:05→11:25)
--- NOTE | 2020-01-13 05:40 | PN ---
PROGRESS NOTE DATE OF SERVICE: 01/12/2020 REASON FOR FOLLOWUP: Left arm cellulitis. INTERVAL HISTORY: The patient is currently afebrile, has been breathing comfortably. His left arm swelling has slightly decreased. Denies any chest pain, shortness of breath or cough. No abdominal pain or diarrhea. PHYSICAL EXAMINATION: Blood pressure 105/52 with a pulse of 74, temperature 97.7. He is 96% on room air. General description is a middle-aged male lying in bed in no distress. RESPIRATORY SYSTEM: Unlabored breathing, clear to auscultation anteriorly. HEART: S1, S2. Regular rate and rhythm. ABDOMEN: Soft, no tenderness. Left arm swelling has slightly decreased. LABS: Hemoglobin is 10.2, white count 5.0, BUN of 12, creatinine 0.66. Blood culture has been negative. DIAGNOSTIC IMPRESSION AND PLAN: Patient with left arm cellulitis clinically responding to Unasyn to continue with the plan to finish therapy with oral antibiotics and monitor his clinical course closely. MMODL / IJN: [id number] /
[2020-01-13 07:51] VITALS: TEMP 98.2
[2020-01-13 08:39] LABS: African American GFR (CKD) >90 (>60 ml/min/1.73 sqM); Anion Gap 8 mmol/L; Blood Urea Nitrogen 12 mg/dL (9-20); Calcium 8.7 mg/dL (8.4-10.2); Carbon Dioxide 23 mmol/L (22-30); Chloride 103 mmol/L (98-107); Glucose 99 mg/dL (74-99); Non-African American GFR(CKD) >90 (>60 ml/min/1.73 sqM); Potassium 4.5 mmol/L (3.5-5.1); Sodium 134 mmol/L (137-145)
[2020-01-13 08:41] LABS: Basophils % (A) 0 %; Eosinophils # (A) 0.6 k/uL (0-0.7); Eosinophils % (A) 13 %; HCT 29.7 % (39.0-53.0); HGB 9.7 gm/dL (13.0-17.5); Lymphocytes # (A) 1.2 k/uL (1.0-4.8); Lymphocytes % (A) 25 %; MCH 32.9 pg (25.0-35.0); MCHC 32.8 g/dL (31.0-37.0); MCV 100.2 fL (80.0-100.0); Monocytes # (A) 0.4 k/uL (0-1.0); Monocytes % (A) 9 %; Neutrophils # (A) 2.4 k/uL (1.3-7.7); Neutrophils % (A) 49 %; Platelet Count 101 k/uL (150-450); RBC 2.96 m/uL (4.30-5.90); RDW 13.5 % (11.5-15.5); WBC 4.8 k/uL (3.8-10.6)
[2020-01-13] MEDS: PANTOPRAZOLE 40 MG TABLET PO SCH (09:13)
[2020-01-13] MEDS: SERTRALINE 50 MG TAB PO SCH (09:13)
[2020-01-13] MEDS: HEPARIN SODIUM,PORCINE 5,000 UNIT/ML 1 ML VIAL SQ SCH (09:13)
[2020-01-13] MEDS: FUROSEMIDE 20 MG TAB PO SCH (10:02)
[2020-01-13] MEDS: SPIRONOLACTONE 25 MG TAB PO SCH (10:03)
[2020-01-13] MEDS: LISINOPRIL 20 MG TAB PO SCH (10:03)
--- NOTE | 2020-01-13 12:07 | P.PN ---
Subjective This 49-year-old male patient is sitting comfortably in a chair at the bedside, he states that his symptoms continue to improve with IV antibiotics, infectious disease consultation report transitioned to oral antibiotics prior to discharge. Objective - Vital Signs Vital signs: Vital Signs Temp 98.2 F 01/13/20 07:05 Pulse 82 01/13/20 09:01 Resp 16 01/13/20 07:05 BP 97/62 01/13/20 09:01 Pulse Ox 98 01/13/20 07:05 Intake & Output 01/12/20 01/13/20 01/13/20 18:59 06:59 18:59 Intake Total 680 100 Balance 680 100 Intake: IV 480 Sodium Chloride 0.9% 1, 480 000 ml @ 130 mls/hr IV . [id number] MARA Rx#:[id number] Intake, IV Titration 100 Amount Ampicillin-Sulbactam 3 gm 100 In Sodium Chloride 0.9% 100 ml @ 200 mls/hr IVPB Q6HR MARA Rx#:[id number] Oral 200 Other: Voiding Method Toilet Toilet # Voids 2 1 1 - Constitutional General appearance: Present: mild distress - Neck Neck: Present: normal ROM - Respiratory Respiratory: bilateral: CTA - Cardiovascular Rhythm: regular Heart sounds: normal: S1, S2 - Gastrointestinal General gastrointestinal: Present: normal bowel sounds, soft - Integumentary Integumentary Comment(s): Healing scratches on left upper extremity - Neurologic Neurologic: Present: CNII-XII intact - Psychiatric Psychiatric: Present: A&O x's 3, appropriate affect, intact judgment & insight - Labs CBC & Chem 7: 01/13/20 07:35 01/13/20 07:35 Labs: Abnormal Lab Results - Last 24 Hours (Table) 01/13/20 01/13/20 Range/Units 07:35 07:35 RBC 2.96 L (4.30-5.90) m/uL Hgb 9.7 L (13.0-17.5) gm/dL Hct 29.7 L (39.0-53.0) % MCV 100.2 H (80.0-100.0) fL Plt Count 101 L (150-450) k/uL Sodium 134 L (137-145) mmol/L Microbiology - Last 24 Hours (Table) 03/07/20 19:43 Blood Culture - Preliminary Blood No Growth after 48 hours Assessment and Plan Plan: Assessment: Left upper extremity cellulitis IV antibiotic Unasyn every 6 hours History of dog scratches various stages of healing Anemia normocytic Thrombocytopenia Hyponatremia Elevated AST recent liver biopsy History of chronic liver disease History of anxiety Plan: Continue infectious disease consult Continue IV antibiotics with go to the surgical antibiotics We'll plan for discharge after cleared by infectious disease with oral antibioti cs
--- NOTE | 2020-01-13 14:41 | P.DS ---
Providers Date of admission: 01/12/20 14:01 Expected date of discharge: 01/13/20 Attending physician: Pedro Campbell Consults: 01/11/20 14:38 Consult Physician Urgent Consulting Provider: Candelario Burr Consult Reason/Comments: L upper arm cellulitis Do you want consulting provider notified?: Yes Primary care physician: Pedro Campbell Hospital Course: Presented to the emergency center after recommendation from urgent care for left upper extremity edema, pain, erythema, he was admitted and Infectious Disease was consulted, IV antibiotics was initiated, Dr. Burr has cleared him for discharge and recommended Augmentin 875 BID for 7 days. Assessment: Left upper extremity cellulitis IV antibiotic Unasyn every 6 hours completed History of dog scratches various stages of healing Anemia normocytic Thrombocytopenia Hyponatremia Elevated AST recent liver biopsy History of chronic liver disease History of anxiety Plan: Discharge home with oral antibiotics as recommended by Dr. Burr Follow up with Dr. Campbell in 1-2 days Plan - Discharge Summary Discharge Rx Participant: Yes New Discharge Prescriptions: New Amoxicillin/Potassium Clav [Augmentin 875-125 Tablet] 1 tab PO Q12HR 7 Days #14 tab Continue Sertraline [Zoloft] 50 mg PO DAILY Lisinopril 20 mg PO DAILY 30 Days #30 tab Pantoprazole Sodium [Protonix] 40 mg PO BID 30 Days #60 tablet. Furosemide [Lasix] 20 mg PO DAILY Spironolactone 50 mg PO DAILY Thiamine HCl [Vitamin B-1] 50 PO DAILY Multivitamin [Multivitamins Adult Gummies] 1 PO Calcium Carb/Magnesium Ox,Carb [Gurdeep-Mag 500-250 MG Chewable] 1 PO DAILY Discharge Medication List Sertraline [Zoloft] 50 mg PO DAILY 12/03/19 [History] Lisinopril 20 mg PO DAILY 30 Days #30 tab 12/05/19 [Rx] Pantoprazole Sodium [Protonix] 40 mg PO BID 30 Days #60 tablet. 12/05/19 [Rx] Furosemide [Lasix] 20 mg PO DAILY 12/17/19 [History] Spironolactone 50 mg PO DAILY 12/17/19 [History] Calcium Carb/Magnesium Ox,Carb [Gurdeep-Mag 500-250 MG Chewable] 1 PO DAILY 01/11/20 [History] Multivitamin [Multivitamins Adult Gummies] 1 PO 01/11/20 [History] Thiamine HCl [Vitamin B-1] 50 PO DAILY 01/11/20 [History] Amoxicillin/Potassium Clav [Augmentin 875-125 Tablet] 1 tab PO Q12HR 7 Days #14 tab 01/13/20 [Rx] Follow up Appointment(s)/Referral(s): Pedro Campbell MD [Primary Care Provider] - 1-2 days Discharge Disposition: HOME SELF-CARE
[2020-01-13 15:17] VITALS: BP 116/62; PULSE 95; RESP 17
--- NOTE | 2020-01-13 19:26 | PN ---
PROGRESS NOTE DATE OF SERVICE: 01/13/2020 REASON FOR FOLLOWUP: Left upper extremity cellulitis. INTERVAL HISTORY: The patient was seen on rounds this morning. The patient has been afebrile, breathing comfortably. Denies having any chest pain or any cough. No nausea, no vomiting, no abdominal pain. Pain to the left arm. PHYSICAL EXAMINATION: On examination, blood pressure is 96/54 with a pulse of 81, temperature 98.2. He is 98% on room air. General description is a middle-aged male up in the room in no distress. RESPIRATORY SYSTEM: Unlabored breathing, clear to auscultation anteriorly. HEART: S1, S2. Regular rate and rhythm. ABDOMEN: Soft. No tenderness. Left arm swelling and redness have improved. LABS: White count is 4.8, creatinine 0.71. Blood culture has been negative. DIAGNOSTIC IMPRESSION AND PLAN: Patient with left upper extremity cellulitis. Patient seems to have shown clinical improvement on IV Unasyn. Antibiotic will be switched over to Augmentin 875 b.i.d. for one week and close outpatient followup. MMODL / IJN: [id number] /
== END 2020-01-13 15:32 | disposition home or self-care (01) | DRG 603 ==
LOC: EC 19:05 → 4SSUR 20:50 → OBSVTOIN 01-12 14:01
PROVIDERS: ADMIT Family Medicine; ATTEND Family Medicine
DX: L03.114 Cellulitis of left upper limb (principal); E87.1 Hypo-osmolality and hyponatremia; D68.9 Coagulation defect, unspecified; D69.6 Thrombocytopenia, unspecified; D64.9 Anemia, unspecified; S40.819A Abrasion of unspecified upper arm, initial encounter; F32.9 Major depressive disorder, single episode, unspecified; K76.9 Liver disease, unspecified; I10 Essential (primary) hypertension; F10.10 Alcohol abuse, uncomplicated; F41.9 Anxiety disorder, unspecified; Z79.899 Other long term (current) drug therapy; Z87.891 Personal history of nicotine dependence; Z87.19 Personal history of other diseases of the digestive system; Z98.890 Other specified postprocedural states; Z98.52 Vasectomy status; W54.8XXA Other contact with dog, initial encounter; Z80.1 Family history of malignant neoplasm of trachea, bronchus and lung; Z83.49 Family history of other endocrine, nutritional and metabolic diseases
CPT/HCPCS: 36415; 80048; 80053; 83605; 85025; 85610; 85730; 87040; 99284

== ENCOUNTER → 2020-01-20 | Outpatient (CLI) | payer OTHER ==
--- NOTE | 2020-01-20 12:53 | US ---
EXAMINATION TYPE: US venous doppler duplex LE LT DATE OF EXAM: 01/20/2020 12:42 PM COMPARISON: Left lower extremity venous ultrasound May 20, 2019. CLINICAL HISTORY: left lower ext, pain and swelling R60.0. redness. Not on blood thinners. SIDE PERFORMED: Left TECHNIQUE: The lower extremity deep venous system is examined utilizing real time linear array sonog kenny with graded compression, doppler sonography and color-flow sonography. VESSELS IMAGED: External Iliac Vein (EIV) Common Femoral Vein Deep Femoral Vein Greater Saphenous Vein * Femoral Vein Popliteal Vein Small Saphenous Vein * Proximal Calf Veins (* superficial vessels) Left Leg: Negative for DVT Grayscale, color doppler, spectral doppler imaging performed of the deep veins of the left lower extr emity. There is normal flow, compressibility, vascular waveforms. IMPRESSION: No ultrasound evidence for acute DVT in the left lower extremity.
== END | disposition home or self-care (01) ==
LOC: RADUSWWP 12:19
PROVIDERS: ATTEND Internal Medicine
DX: R60.0 Localized edema (principal)

== ENCOUNTER → 2020-03-22 | Outpatient (CLI) | payer OTHER ==
--- NOTE | 2020-03-22 09:16 | US ---
EXAMINATION TYPE: US abdomen complete DATE OF EXAM: 03/22/2020 COMPARISON: NONE CLINICAL HISTORY: R74.8 Abnormal levels of other serum enzymes. Liver disease abnormal labs. EXAM MEASUREMENTS: Liver Length: 16.1 cm Gallbladder Wall: .3 cm CBD: .7 cm Spleen: 13.8 cm Right Kidney: 10.0 x 4.9 x 4.3 cm Left Kidney: 12 x 5.0 x 4.5 cm Pancreas: Echogenic Liver: Increased attenuation Gallbladder: Folded small amount of free fluid. Evidence for sonographic Farias's sign: No CBD: Upper limits Spleen: Upper limits Right Kidney: wnl Left Kidney: wnl Upper IVC: Limited Abd Aorta: wnl The liver is echogenic. The intrahepatic portion of the IVC and proximal abdominal aorta are within n ormal limits. There is no evidence of cholelithiasis. Common bile duct is unremarkable. The visual ized portions of the pancreas are homogenous. The spleen is unremarkable. Kidneys are symmetric and free of hydronephrosis. No renal lesions are seen. IMPRESSION: 1. Hepatic steatosis versus diffuse hepatocellular disease. Correlate clinically. 2. Tiny amount of fluid adjacent to the gallbladder. Gallbladder is otherwise unremarkable
[2020-03-22 10:06] LABS: ALT 40 U/L (4-49); AST 76 U/L (17-59); African American GFR (CKD) >90 (>60 ml/min/1.73 sqM); Alkaline Phosphatase 205 U/L (38-126); Anion Gap 9 mmol/L; Blood Urea Nitrogen 11 mg/dL (9-20); Calcium 9.2 mg/dL (8.4-10.2); Carbon Dioxide 26 mmol/L (22-30); Chloride 104 mmol/L (98-107); Glucose 96 mg/dL (74-99); Non-African American GFR(CKD) >90 (>60 ml/min/1.73 sqM); Sodium 139 mmol/L (137-145); Total Bilirubin 1.6 mg/dL (0.2-1.3)
[2020-03-22 10:12] LABS: Potassium 4.5 mmol/L (3.5-5.1)
[2020-03-22 10:13] LABS: INR 1.2 (<1.2); Prothrombin Time 12.4 sec (9.0-12.0)
[2020-03-22 10:14] LABS: Anisocytosis Slight; HCT 36.9 % (39.0-53.0); HGB 11.7 gm/dL (13.0-17.5); Hypochromasia Moderate; MCH 29.5 pg (25.0-35.0); MCHC 31.8 g/dL (31.0-37.0); MCV 92.8 fL (80.0-100.0); Mean Platelet Volume 8.5; Platelet Count 101 k/uL (150-450); RBC 3.97 m/uL (4.30-5.90); RDW 16.3 % (11.5-15.5); WBC 4.4 k/uL (3.8-10.6)
== END | disposition home or self-care (01) ==
LOC: RADUSWWP 08:23
PROVIDERS: ATTEND Internal Medicine
DX: R74.8 Abnormal levels of other serum enzymes (principal)
CPT/HCPCS: 76700; 80053; 82105; 82140; 85027; 85610

== ENCOUNTER → 2020-06-15 | Day surgery (SDC) | payer OTHER ==
[2020-06-11 15:37] VITALS: BMI 28.5
[~2020-06-15] MED LIST: LACTATED RINGERS 1,000 ML IV ONE; LACTATED RINGERS 1,000 ML IV SCH; LIDOCAINE 1% (10MG/ML) FOR IV START INTRADERMA ONE; LIDOCAINE 1% (10MG/ML) FOR IV START INTRADERMA PRN; PROPOFOL 10 MG/ML 20 ML VIAL IV ONE
[2020-06-15 09:53] VITALS: TEMP 99.3
[2020-06-15 11:30] VITALS: RESP 17
--- NOTE | 2020-06-15 11:31 | P.PCN ---
Date of Procedure: 06/15/20 Description of Procedure: BRIEF HISTORY: Patient is a 49-year-old male who presented to the hospital for outpatient colonoscopy for screening for malignant neoplasm of the colon. No prior colonoscopy reported. No family history of colon cancer. No change in bowel habits. PROCEDURE PERFORMED: Colonoscopy. PREOPERATIVE DIAGNOSIS: Screening for malignant neoplasm of the colon, no prior colonoscopy. ESTIMATED BLOOD LOSS: Minimal. IV sedation per Anesthesia. PROCEDURE: After informed consent was obtained, the patient, was brought into the endoscopy unit. IV sedation was administered by Anesthesia under continuous monitoring. Digital rectal examination was normal. Initially the Olympus CF-190 flexible video colonoscope was then inserted in the rectum, gradually advanced into the cecum without any difficulty. Careful examination was performed as the scope was gradually being withdrawn. Ileocecal valve and the appendiceal orifice were visualized and appeared normal. Prep was fair with a large amount of semisolid stools with the entire examined colon precluding complete visualization of the mucosa. Mucosa of the cecum, ascending colon, transverse colon, descending colon, sigmoid colon, and rectum which was able to be visualized appeared normal. Retroflexion was performed in the rectum and no lesions were seen. The patient tolerated the procedure well. IMPRESSION: Fair prep. Otherwise, normal-appearing colon from rectum to cecum. RECOMMENDATIONS: Findings of this examination were discussed with the patient and his . Okay to resume diet. Okay to resume medications. Follow-up in GI clinic as scheduled. Would recommend repeat colonoscopy in 3 years given fair prep.
[2020-06-15 11:49] VITALS: BP 126/85; PULSE 73
== END ==
LOC: ORWHC2ENDO 09:32
PROVIDERS: ATTEND Internal Medicine
DX: Z12.11 Encounter for screening for malignant neoplasm of colon (principal); I10 Essential (primary) hypertension; Z79.899 Other long term (current) drug therapy; Z98.890 Other specified postprocedural states; Z87.19 Personal history of other diseases of the digestive system; Z98.52 Vasectomy status
CPT/HCPCS: J2704; G0121

== ENCOUNTER → 2020-09-17 | Outpatient (CLI) | payer OTHER ==
[2020-09-17 12:00] LABS: INR 1.2 (<1.2); Prothrombin Time 12.3 sec (9.0-12.0)
[2020-09-17 12:05] LABS: ALT 32 U/L (4-49); AST 63 U/L (17-59); African American GFR (CKD) >90 (>60 ml/min/1.73 sqM); Albumin 4.4 g/dL (3.5-5.0); Alkaline Phosphatase 190 U/L (38-126); Anion Gap 6 mmol/L; Blood Urea Nitrogen 12 mg/dL (9-20); Carbon Dioxide 26 mmol/L (22-30); Chloride 107 mmol/L (98-107); Glucose 95 mg/dL (74-99); Non-African American GFR(CKD) >90 (>60 ml/min/1.73 sqM); Potassium 4.2 mmol/L (3.5-5.1); Sodium 139 mmol/L (137-145); Total Bilirubin 1.5 mg/dL (0.2-1.3); Total Protein 8.2 g/dL (6.3-8.2)
[2020-09-17 13:06] LABS: HCT 39.4 % (39.0-53.0); HGB 13.2 gm/dL (13.0-17.5); MCH 30.5 pg (25.0-35.0); MCHC 33.5 g/dL (31.0-37.0); MCV 90.8 fL (80.0-100.0); Mean Platelet Volume 7.8; Platelet Count 101 k/uL (150-450); RBC 4.34 m/uL (4.30-5.90); RDW 15.4 % (11.5-15.5); WBC 4.1 k/uL (3.8-10.6)
--- NOTE | 2020-09-17 13:21 | US ---
EXAMINATION TYPE: US abdomen complete DATE OF EXAM: 09/17/2020 COMPARISON: US 03/22/2020 CLINICAL HISTORY: 49-year-old male R74.8 Abnormal levels of other serum enzymes. History of ETOH TECHNIQUE: Multiple sonographic images of the abdomen are obtained. FINDINGS: EXAM MEASUREMENTS: Liver Length: 11.9 cm Gallbladder Wall: 0.2 cm CBD: 0.6 cm Spleen: 15.0 cm Right Kidney: 10.1 x 4.6 x 5.8 cm Left Kidney: 11.6 x 4.9 x 5.0 cm Pancreas: Most of the pancreas is visualized and shows no gross abnormality. Liver: Slight heterogeneity may be on the technical basis. Gallbladder: wnl Evidence for sonographic Farias's sign: No CBD: Measuring upper limits of normal Spleen: Enlarged Right Kidney: No hydronephrosis. Left Kidney: No hydronephrosis . Cystic area visualized measuring 1.0x 0.6 x 1.1 cm. Echogenic foci visualized lower pole measuring 0.5 cm Upper IVC: wnl Abd Aorta: wnl IMPRESSION: 1. Slight heterogeneous appearance to the liver may be on a technical basis or could reflect nonspeci fic hepatocellular disease. Clinically correlate. 2. Bile duct borderline dilated at 6 mm, unchanged to improved from 03/22/2020. Likely chronic in this patient. 3. Splenomegaly at 15.0 cm. 4. A 5 mm nonobstructive calculus lower pole left kidney.
== END | disposition home or self-care (01) ==
LOC: RADUSWWP 10:52
PROVIDERS: ATTEND Internal Medicine
DX: N20.0 Calculus of kidney (principal); R16.1 Splenomegaly, not elsewhere classified; R74.8 Abnormal levels of other serum enzymes
CPT/HCPCS: 76700; 80053; 82105; 82140; 85027; 85610

== ENCOUNTER → 2021-04-06 | Outpatient (CLI) | payer OTHER ==
--- NOTE | 2021-04-06 11:37 | US ---
EXAMINATION TYPE: US abdomen complete DATE OF EXAM: 04/06/2021 COMPARISON: 09/17/2020 CLINICAL HISTORY: R74.8 ABN LEVELS OF OTHER SERUM ENZYMES. EXAM MEASUREMENTS: Liver Length: 12.0 cm Gallbladder Wall: 0.3 cm CBD: 0.8 cm . This is dilated for the patient's age. An MRCP may be helpful for further evaluation t o exclude underlying obstructing calculus or lesion. Spleen: 14.4 cm Right Kidney: 10.9 x 5.3 x 4.7 cm Left Kidney: 11.7 x 4.9 x 4.9 cm Pancreas: Tail obscured by overlying bowel gas Liver: appears wnl Gallbladder: no evidence of stones Evidence for sonographic Farias's sign: no CBD: dilated Spleen: enlarged the spleen is 14.4 cm in length, which is enlarged. Right Kidney: no renal calculi or evidence of hydronephrosis Left Kidney: echogenic foci = 0.5cm most suggestive of a renal calculus at the midpole. No hydron ephrosis. Upper IVC: wnl Abd Aorta: wnl IMPRESSION: 1. The tail of the pancreas is poorly visualized due to overlying bowel gas. 2. The common duct is dilated measuring 8 mm for patient's age. An MRCP may be helpful to exclude und erlying obstructing calculus or lesion. This was 6 mm on the prior study. 3. Splenomegaly. The spleen measures 14.4 cm in length. 4. No gallstones. 5. There is a left renal calculus measuring 5 mm which is nonobstructing. No hydronephrosis.
== END | disposition home or self-care (01) ==
LOC: RADUSWWP 03-14 07:09
PROVIDERS: ATTEND Internal Medicine
DX: N20.0 Calculus of kidney (principal); R16.1 Splenomegaly, not elsewhere classified; K83.8 Other specified diseases of biliary tract
CPT/HCPCS: 76700

== ENCOUNTER → 2021-04-19 | Outpatient (CLI) | payer OTHER ==
--- NOTE | 2021-04-19 13:29 | EST ---
EXERCISE STRESS DATE OF SERVICE: AGE: 50 SEX: M HT: @@ WT: @@ PROTOCOL: @@ STAGE: @@ DURATION OF EXERCISE: @@ HEART RATE REST: @@ BLOOD PRESSURE REST: @@ MAXIMUM HEART RATE ACHIEVED: @@ MAXIMUM BLOOD PRESSURE: @@ 85% MPHR: @@ 100% MPHR: @@ METS: @@ RESULTS: Baseline rhythm is sinus mechanism, rate 69, normal axis and intervals. Normal echocardiogram. Baseline blood pressure 130/87 mmHg. Patient exercised on Loy protocol for 11 minutes, reaching a peak rate of 166 beats per minute which is equal to 98% maximum predicted heart rate. Peak blood pressure 174/75 mmHg. Test was terminated secondary to fatigue. There was no chest pain. Electrocardiograph monitoring revealed occasional single PVCs. There was no evidence of diagnostic ischemic ST deviation. CONCLUSION: 1. Good exercise tolerance with normal electrocardiographic response to exercise. 2. Occasional single PVCs. MMODL / IJN: [id number] /
== END | disposition home or self-care (01) ==
LOC: RADNMMAIN 08:43
PROVIDERS: ATTEND Family Medicine
DX: I49.3 Ventricular premature depolarization (principal)
CPT/HCPCS: 93017

== ENCOUNTER → 2021-10-31 | Outpatient (CLI) | payer OTHER ==
--- NOTE | 2021-10-31 08:19 | US ---
EXAMINATION TYPE: US abdomen complete DATE OF EXAM: 10/31/2021 COMPARISON: 04/06/2021 CLINICAL HISTORY: R74.8 Abnormal liver enzyme levels. EXAM MEASUREMENTS: Liver Length: 12.4 cm Gallbladder Wall: 0.2 cm CBD: 0.9 cm Spleen: 15.4 cm Right Kidney: 10.6x5.6x5.7 cm Left Kidney: 11.5x5.1x5.1 cm Pancreas: wnl Liver: Coarse texture, trace amount of ascites superiorly. Gallbladder: Trace amount of fluid adjacent the gallbladder Evidence for sonographic Farias's sign: No CBD: wnl Spleen: Enlarged Right Kidney: wnl Left Kidney: Mid echogenic foci 0.8cm, Limited inf pole Upper IVC: wnl Abd Aorta: wnl The intrahepatic portion of the IVC and proximal abdominal aorta are within normal limits. There is no evidence of cholelithiasis. Common bile duct is unremarkable. The visualized portions of the tovar creas are homogenous. Kidneys are symmetric and free of hydronephrosis. No renal lesions are seen. IMPRESSION: 1. Hepatic steatosis. 2. Splenomegaly. 3. Nonobstructing calculi left kidney.
[2021-10-31 09:21] LABS: HCT 46.2 % (39.0-53.0); HGB 15.5 gm/dL (13.0-17.5); MCH 31.7 pg (25.0-35.0); MCHC 33.5 g/dL (31.0-37.0); MCV 94.5 fL (80.0-100.0); Mean Platelet Volume 8.2; Platelet Count 112 k/uL (150-450); RBC 4.89 m/uL (4.30-5.90); RDW 14.1 % (11.5-15.5); WBC 4.9 k/uL (3.8-10.6)
[2021-10-31 09:26] LABS: INR 1.2 (<1.2); Prothrombin Time 12.2 sec (9.0-12.0)
[2021-10-31 09:53] LABS: ALT 29 U/L (4-49); AST 45 U/L (17-59); African American GFR (CKD) >90 (>60 ml/min/1.73 sqM); Albumin 4.5 g/dL (3.5-5.0); Alkaline Phosphatase 123 U/L (38-126); Anion Gap 9 mmol/L; Blood Urea Nitrogen 17 mg/dL (9-20); Calcium 9.4 mg/dL (8.4-10.2); Carbon Dioxide 26 mmol/L (22-30); Chloride 105 mmol/L (98-107); Glucose 102 mg/dL (74-99); Non-African American GFR(CKD) >90 (>60 ml/min/1.73 sqM); Potassium 4.3 mmol/L (3.5-5.1); Sodium 140 mmol/L (137-145); Total Bilirubin 1.4 mg/dL (0.2-1.3); Total Protein 8.1 g/dL (6.3-8.2)
== END | disposition home or self-care (01) ==
LOC: RADUSWWP 07:27
PROVIDERS: ATTEND Internal Medicine Gastroenterology
DX: K70.31 Alcoholic cirrhosis of liver with ascites (principal); K76.0 Fatty (change of) liver, not elsewhere classified; R16.1 Splenomegaly, not elsewhere classified; N20.0 Calculus of kidney
CPT/HCPCS: 76700; 80053; 82105; 82140; 85027; 85610

== ENCOUNTER → 2022-04-12 | Outpatient (CLI) | payer OTHER ==
--- NOTE | 2022-04-12 08:45 | US ---
EXAMINATION TYPE: US liver DATE OF EXAM: 04/12/2022 COMPARISON: US 2020 CLINICAL HISTORY: K70.31ALCOHOLIC CIRRHOSIS OF LIVER. EXAM MEASUREMENTS: Liver Length: 17.7 cm Gallbladder Wall: 0.2 cm CBD: 0.8 cm Right Kidney: 10.6 x 5.6 x 5.4 cm Pancreas: visualized portions wnl, limited by overlying midline bowel gas Liver: measures in upper limits of normal, course echotexture Gallbladder: wnl Evidence for sonographic Farias's sign: no CBD: dilated Right Kidney: wnl IMPRESSION: Mild hepatic steatosis suggested.
== END | disposition home or self-care (01) ==
LOC: RADUSWWP 07:05
PROVIDERS: ATTEND Internal Medicine Gastroenterology
DX: K70.30 Alcoholic cirrhosis of liver without ascites (principal)
CPT/HCPCS: 76705

== ENCOUNTER → 2022-05-16 | Outpatient (CLI) | payer OTHER ==
[2022-05-16 11:04] LABS: African American GFR (CKD) 114.1 (60.0-200.0); Albumin 4.6 g/dL (3.8-4.9); Albumin/Globulin Ratio 1.65 (1.60-3.17); Anion Gap 11.5 mmol/L (10.00-18.00); BUN/Creat Ratio 14.77 Ratio (12.00-20.00); Blood Urea Nitrogen 13.1 mg/dL (9.0-27.0); Calcium 9.2 mg/dL (8.7-10.3); Carbon Dioxide 25.2 mmol/L (20.0-27.5); Globulin 2.8 g/dL (1.6-3.3); Non-African American GFR(CKD) 98.4 (60.0-200.0); Potassium 4.3 mmol/L (3.5-5.5); Total Bilirubin 0.9 mg/dL (0.30-1.20); Total Protein 7.4 g/dL (6.2-8.2)
[2022-05-16 11:31] LABS: Basophils # (A) 0.02 X 10*3/uL (0.00-0.10); Basophils % (A) 0.5 %; Eosinophils # (A) 0.21 X 10*3/uL (0.04-0.35); Eosinophils % (A) 5.4 %; HGB 15.2 g/dL (13.0-17.0); Immature Grans, Automated 0.3 %; Lymphocytes # (A) 1.26 X 10*3/uL (0.90-5.00); Lymphocytes % (A) 32.4 %; MCH 30.3 pg (27.0-32.0); MCHC 33.8 g/dL (32.0-37.0); MCV 89.6 fL (80.0-97.0); Mean Platelet Volume 10.8 fL (9.5-12.2); Monocytes # (A) 0.32 X 10*3/uL (0.20-1.00); Monocytes % (A) 8.2 %; NRBC Per 100 WBC 0 /100 WBCS (0.0-0.0); Neutrophils # (A) 2.07 X 10*3/uL (1.80-7.70); Neutrophils % (A) 53.2 %; Platelet Count 94 X 10*3/uL (140-440); RBC 5.02 X 10*6/uL (4.40-5.60); RBC Morphology NORMAL; RDW 13.5 % (11.5-14.5); WBC 3.89 X 10*3/uL (4.50-10.00)
== END | disposition home or self-care (01) ==
LOC: LABWHC1 08:05
PROVIDERS: ATTEND Internal Medicine Gastroenterology
DX: K70.31 Alcoholic cirrhosis of liver with ascites (principal)
CPT/HCPCS: 36415; 80053; 82105; 85025

== ENCOUNTER → 2022-06-14 | Outpatient (CLI) | payer OTHER ==
[2022-06-14 14:52] LABS: ALT 25 U/L (10-49); AST 37 U/L (14-35); African American GFR (CKD) 113.4 (60.0-200.0); Albumin 4.5 g/dL (3.8-4.9); Albumin/Globulin Ratio 1.45 (1.60-3.17); Alkaline Phosphatase 93 U/L (41-126); BUN/Creat Ratio 15.11 Ratio (12.00-20.00); Blood Urea Nitrogen 13.6 mg/dL (9.0-27.0); Carbon Dioxide 23.6 mmol/L (20.0-27.5); Chloride 104 mmol/L (96-109); Chol/HDL Ratio 3.42 Ratio; Globulin 3.1 g/dL (1.6-3.3); Glucose 138 mg/dL (70-110); LDL Cholesterol,Calculated 72.3 mg/dL (0.0-131.0); Non-African American GFR(CKD) 97.9 (60.0-200.0); Potassium 4.4 mmol/L (3.5-5.5); Sodium 139 mmol/L (135-145); Total Protein 7.6 g/dL (6.2-8.2)
== END | disposition home or self-care (01) ==
LOC: LABWHC1 08:00
PROVIDERS: ATTEND Internal Medicine Gastroenterology
DX: Z12.5 Encounter for screening for malignant neoplasm of prostate (principal); E78.5 Hyperlipidemia, unspecified
CPT/HCPCS: 36415; 80053; 80061; 84153; 84439; 84443

== ENCOUNTER → 2022-10-06 | Outpatient (CLI) | payer OTHER ==
--- NOTE | 2022-10-06 10:15 | US ---
EXAMINATION TYPE: US liver DATE OF EXAM: 10/06/2022 COMPARISON: US, CT CLINICAL HISTORY: K70.31 Alcoholic cirrhosis. Alcoholic cirrhosis. Patient states he has not had alco hol in 3 years. TECHNIQUE: Multiple sonographic images of the right upper quadrant are obtained. FINDINGS: EXAM MEASUREMENTS: Liver Length: 12.9 cm Gallbladder Wall: 0.36 cm. Normal less than 0.3 cm. CBD: 0.59 cm Right Kidney: 10.9 x 4.3 x 4.7 cm NOTE TAKER NOTES: Exam is limited due to great amount of overlying bowel gas. Pancreas: Appears hyperechoic. Tail not well seen. Liver: Measurement was limited due to gas. Appears very coarse in echotexture Gallbladder: Fold seen. Minimal internal echoes were seen within. Evidence for sonographic Farias's sign: No CBD: Measures upper limits. Right Kidney: Limited due to gas. No suspicious ascites evident. IMPRESSION: 1. No acute ultrasound abnormality right upper quadrant ultrasound.
[2022-10-06 14:42] LABS: Basophils # (A) 0.03 X 10*3/uL (0.00-0.10); Basophils % (A) 0.6 %; Eosinophils # (A) 0.34 X 10*3/uL (0.04-0.35); Eosinophils % (A) 7.3 %; HCT 44.2 % (39.6-50.0); HGB 15.3 g/dL (13.0-17.0); Immature Grans, Automated 0.2 %; Lymphocytes # (A) 1.37 X 10*3/uL (0.90-5.00); Lymphocytes % (A) 29.5 %; MCH 31.2 pg (27.0-32.0); MCHC 34.6 g/dL (32.0-37.0); MCV 90.2 fL (80.0-97.0); Mean Platelet Volume 10.7 fL (9.5-12.2); Monocytes # (A) 0.47 X 10*3/uL (0.20-1.00); Monocytes % (A) 10.1 %; NRBC Per 100 WBC 0 /100 WBCS (0.0-0.0); Neutrophils # (A) 2.42 X 10*3/uL (1.80-7.70); Neutrophils % (A) 52.3 %; Platelet Count 110 X 10*3/uL (140-440); RDW 13.8 % (11.5-14.5); WBC 4.64 X 10*3/uL (4.50-10.00)
[2022-10-06 14:43] LABS: Albumin 4.6 g/dL (3.8-4.9); Albumin/Globulin Ratio 1.39 (1.60-3.17); Anion Gap 9.1 mmol/L (10.00-18.00); BUN/Creat Ratio 14.25 Ratio (12.00-20.00); Blood Urea Nitrogen 11.4 mg/dL (9.0-27.0); Calcium 9.3 mg/dL (8.7-10.3); Carbon Dioxide 25.9 mmol/L (20.0-27.5); Globulin 3.3 g/dL (1.6-3.3); Non-African American GFR(CKD) 102.7 (60.0-200.0); Potassium 4.3 mmol/L (3.5-5.5); Total Protein 7.9 g/dL (6.2-8.2)
== END | disposition home or self-care (01) ==
LOC: RADUSWWP 08:33
PROVIDERS: ATTEND Internal Medicine Gastroenterology
DX: K70.31 Alcoholic cirrhosis of liver with ascites (principal)
CPT/HCPCS: 76705; 80053; 82105; 85025

== ENCOUNTER 2023-05-15 06:36 | Day surgery (SDC) | payer OTHER ==
[2023-05-09 14:21] VITALS: BMI 30.7
[~2023-05-15 06:36] MED LIST changes: -LACTATED RINGERS 1,000 ML IV ONE; -LIDOCAINE 1% (10MG/ML) FOR IV START INTRADERMA ONE; -PROPOFOL 10 MG/ML 20 ML VIAL IV ONE
[2023-05-15 07:12] VITALS: TEMP 98.1
[2023-05-15] MEDS ORDERED: PROPOFOL 10 MG/ML 20 ML VIAL IV ONE (07:25)
[2023-05-15] MEDS ORDERED: LIDOCAINE 2% INJ 20 MG/ML (2 ML VIAL) ONE (07:25)
--- NOTE | 2023-05-15 07:48 | P.PCN ---
Date of Procedure: 05/15/23 Procedure(s) Performed: Brief history: Patient is a pleasant 52-year-old white male scheduled for an elective upper endoscopy as well as colonoscopy as a part of evaluation of history of liver cirrhosis/screening for esophageal varices and screening for colon cancer Procedure performed: Esophagogastroduodenoscopy Colonoscopy Preoperative diagnosis: History of liver cirrhosis/screening for esophageal varices Screening for colon cancer Anesthesia: MAC Procedure: After informed consent was obtained from the patient was brought into the endoscopy unit and IV sedation was administered by anesthesia under continuous monitoring. Initially upper endoscopy was done. The Olympus GF 160 video endoscope was inserted inserted into the mouth and esophagus intubated without any difficulty and was gradually advanced into the stomach and duodenum and carefully examined. The bulb and second part of the duodenum appeared normal. The scope was then withdrawn into the stomach adequately insufflated with air and upon careful examination the antrum and body, cardia and fundus appeared normal. No evidence of gastric varices. The scope was then withdrawn into the esophagus. The GE junction was located at 40 cm to the incisors. It appeared regular with no erythema erosions or ulcerations. Small distal esophageal varices seen. Rest of the esophagus appeared normal. Patient tolerated the procedure well. At this time the patient continued to remain sedation. Initial digital rectal examination was normal. Olympus CF 160 video colonoscope was then inserted into the rectum and gradually advanced to the cecum without any difficulty. Careful examination was performed as the scope was gradually being withdrawn. The prep was excellent. The cecum, ascending colon, transverse colon, descending colon, sigmoid colon and rectum appeared normal. Retroflexion was performed in the rectum and no lesions were noted. Patient tolerated the procedure well. Impression: 1. Upper endoscopy revealed small esophageal varices and no evidence of gastric varices 2. Colonoscopy was within normal limits with no evidence of colorectal neoplasia Recommendations: Findings of this examination were discussed with the patient as well as his family. Was advised to have a repeat upper endoscopy in 2-3 years for repeat colonoscopy in 10 years.
[2023-05-15 07:58] VITALS: RESP 20
[2023-05-15 08:25] VITALS: BP 158/80; PULSE 59
== END 2023-05-15 08:36 ==
LOC: ORWHC2ENDO 06:36
PROVIDERS: ATTEND Internal Medicine Gastroenterology
DX: Z12.11 Encounter for screening for malignant neoplasm of colon (principal); I85.10 Secondary esophageal varices without bleeding; K70.31 Alcoholic cirrhosis of liver with ascites; I10 Essential (primary) hypertension; K75.9 Inflammatory liver disease, unspecified; F10.90 Alcohol use, unspecified, uncomplicated; Z79.899 Other long term (current) drug therapy
CPT/HCPCS: 45378; 43239; J2704; J2001

== ENCOUNTER → 2023-11-13 | Outpatient (CLI) | payer OTHER ==
[2023-11-13 15:36] LABS: BUN/Creat Ratio 10.33 Ratio (12.00-20.00); Blood Urea Nitrogen 9.3 mg/dL (9.0-27.0); Carbon Dioxide 26.1 mmol/L (21.6-31.8); Chloride 104 mmol/L (96-109); Glucose 129 mg/dL (70-110); Potassium 4.1 mmol/L (3.5-5.5); Sodium 142 mmol/L (135-145)
[2023-11-13 15:37] LABS: ALT 36 U/L (10-49); AST 39 U/L (14-35); Albumin 4.7 g/dL (3.8-4.9); Albumin/Globulin Ratio 1.47 Ratio (1.60-3.17); Alkaline Phosphatase 114 U/L (41-126); Calcium 9.4 mg/dL (8.7-10.3); Globulin 3.2 g/dL (1.6-3.3); Total Bilirubin 0.7 mg/dL (0.3-1.2); Total Protein 7.9 g/dL (6.2-8.2)
[2023-11-13 16:14] LABS: Basophils # (A) 0.03 X 10*3/uL (0.00-0.10); Basophils % (A) 0.8 %; Eosinophils # (A) 0.18 X 10*3/uL (0.04-0.35); Eosinophils % (A) 4.7 %; HCT 46.4 % (39.6-50.0); HGB 15.5 g/dL (13.0-17.0); Lymphocytes # (A) 1.02 X 10*3/uL (0.90-5.00); Lymphocytes % (A) 26.6 %; MCH 30.8 pg (27.0-32.0); MCHC 33.4 g/dL (32.0-37.0); MCV 92.2 FL (80.0-97.0); Mean Platelet Volume 10.8 FL (9.5-12.2); Monocytes # (A) 0.29 X 10*3/uL (0.20-1.00); Monocytes % (A) 7.6 %; NRBC Per 100 WBC 0 X 10*3/uL (0.00-0.01); Neutrophils # (A) 2.31 X 10*3/uL (1.80-7.70); Platelet Count 100 X 10*3/uL (140-440); RBC 5.03 X 10*6/uL (4.40-5.60); RBC Morphology Normal (Normal); RDW 14.1 % (11.5-14.5); WBC 3.84 X 10*3/uL (4.50-10.00)
== END | disposition home or self-care (01) ==
LOC: LABWHC1 08:04
PROVIDERS: ATTEND Internal Medicine Gastroenterology
DX: K70.31 Alcoholic cirrhosis of liver with ascites (principal)
CPT/HCPCS: 36415; 80053; 82105; 85025

== ENCOUNTER → 2024-04-21 | Outpatient (CLI) | payer OTHER ==
--- NOTE | 2024-04-21 08:25 | US ---
EXAMINATION TYPE: US liver DATE OF EXAM: 04/21/2024 COMPARISON: 08/07/2023 CLINICAL INDICATION: Male, 53 years old with history of K70.31 ALCOHOLIC CIRRHOSIS OF LIVER; Routine liver US. TECHNIQUE: Multiple sonographic images of the right upper quadrant are obtained. FINDINGS: EXAM MEASUREMENTS: Liver Length: 13.2 cm Gallbladder Wall: 0.2 cm CBD: 0.5 cm Right Kidney: 11.0 x 5.2 x 6.1 cm Pancreas: No gross abnormality. Liver: Slightly heterogeneous with nodular contour. No focal lesion seen. Gallbladder: No wall thickening or stones identified. Evidence for sonographic Farias's sign: neg CBD: wnl Right Kidney: No hydronephrosis or masses seen IMPRESSION: Hepatocellular disease, no suspicious masses.
== END | disposition home or self-care (01) ==
LOC: RADUSWWP 07:54
PROVIDERS: ATTEND Internal Medicine Gastroenterology
DX: K70.31 Alcoholic cirrhosis of liver with ascites (principal); K76.9 Liver disease, unspecified
CPT/HCPCS: 76705

== ENCOUNTER → 2024-05-14 | Outpatient (CLI) | payer OTHER ==
[2024-05-14 09:54] LABS: ALT 36 U/L (4-49); African American GFR (CKD) >90 (>60 ml/min/1.73 sqM); Albumin 4.4 g/dL (3.5-5.0); Albumin/Globulin Ratio 1.4; Anion Gap 9 mmol/L; Blood Urea Nitrogen 13 mg/dL (9-20); Carbon Dioxide 23 mmol/L (22-30); Chloride 109 mmol/L (98-107); Globulin 3.2 g/dL; Glucose 110 mg/dL (74-99); Non-African American GFR(CKD) >90 (>60 ml/min/1.73 sqM); Sodium 141 mmol/L (137-145); Total Protein 7.6 g/dL (6.3-8.2)
[2024-05-14 09:55] LABS: Basophils % (A) 1 %; Eosinophils # (A) 0.2 k/uL (0-0.7); Eosinophils % (A) 4 %; HCT 48.6 % (39.0-53.0); HGB 16.1 gm/dL (13.0-17.5); Lymphocytes % (A) 26 %; MCH 30.6 pg (25.0-35.0); MCV 92.6 fL (80.0-100.0); Monocytes # (A) 0.3 k/uL (0-1.0); Monocytes % (A) 7 %; Neutrophils # (A) 2.3 k/uL (1.3-7.7); Neutrophils % (A) 60 %; Platelet Count 107 k/uL (150-450); RBC 5.25 m/uL (4.30-5.90); RDW 13.9 % (11.5-15.5); WBC 3.8 k/uL (3.8-10.6)
[2024-05-14 10:04] LABS: AST 53 U/L (17-59); Alkaline Phosphatase 96 U/L (38-126); Potassium 4.6 mmol/L (3.5-5.1)
== END | disposition home or self-care (01) ==
LOC: LABWHC1 07:47
PROVIDERS: ATTEND Nurse Practitioner Family
DX: K70.31 Alcoholic cirrhosis of liver with ascites (principal)
CPT/HCPCS: 36415; 80053; 82105; 85025

== ENCOUNTER → 2024-12-09 | Outpatient (CLI) | payer OTHER ==
--- NOTE | 2024-12-09 08:45 | US ---
EXAMINATION TYPE: US liver DATE OF EXAM: 12/09/2024 COMPARISON: US 04/21/24 CLINICAL INDICATION: Male, 53 years old with history of K70.31 ALCOHOLIC CIRRHOSIS OF LIVER WITH ASCI FARA; Cirrhosis TECHNIQUE: Grayscale and color Doppler imaging of the right upper quadrant was performed. 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 Gallbladder: wnl, as best visualized Evidence for sonographic Farias's sign: No CBD: upper limites Right Kidney: small 0.5cm non-shadowing echogenic area at the inferior pole Exam very limited due to overlying bowel gas and tight rib spaces. IMPRESSION: 1. No evidence for acute process. 2. 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 3. Nonobstructing right renal calculus. [facility], , 12/09/2024 8:43 AM
[2024-12-09 19:03] LABS: Basophils # (A) 0.04 X 10*3/uL (0.00-0.10); Basophils % (A) 0.7 %; Eosinophils % (A) 3.5 %; HCT 46.7 % (39.6-50.0); HGB 15.1 g/dL (13.0-17.0); Lymphocytes # (A) 1.62 X 10*3/uL (0.90-5.00); Lymphocytes % (A) 28.3 %; MCH 30.1 pg (27.0-32.0); MCHC 32.3 g/dL (32.0-37.0); MCV 93.2 FL (80.0-97.0); Mean Platelet Volume 10.6 FL (9.5-12.2); Monocytes # (A) 0.56 X 10*3/uL (0.20-1.00); Monocytes % (A) 9.8 %; NRBC Per 100 WBC 0 X 10*3/uL (0.00-0.01); Neutrophils # (A) 3.29 X 10*3/uL (1.80-7.70); Neutrophils % (A) 57.4 %; Platelet Count 166 X 10*3/uL (140-440); RBC 5.01 X 10*6/uL (4.40-5.60); RDW 13.4 % (11.5-14.5); WBC 5.73 X 10*3/uL (4.50-10.00)
[2024-12-09 19:43] LABS: BUN/Creat Ratio 16.55 Ratio (12.00-20.00); Blood Urea Nitrogen 18.2 mg/dL (9.0-27.0); Carbon Dioxide 23.8 mmol/L (21.6-31.8); Chloride 105 mmol/L (96-109); Glucose 103 mg/dL (70-110); Potassium 4.6 mmol/L (3.5-5.5); Sodium 140 mmol/L (135-145)
[2024-12-09 19:44] LABS: ALT 37 U/L (10-49); AST 36 U/L (14-35); Albumin 4.5 g/dL (3.8-4.9); Albumin/Globulin Ratio 1.45 Ratio (1.60-3.17); Alkaline Phosphatase 96 U/L (41-126); Calcium 9.1 mg/dL (8.7-10.3); Globulin 3.1 g/dL (1.6-3.3); Total Bilirubin 0.7 mg/dL (0.3-1.2); Total Protein 7.6 g/dL (6.2-8.2)
== END | disposition home or self-care (01) ==
LOC: RADUSWWP 07:57
PROVIDERS: ATTEND Internal Medicine Gastroenterology
DX: K70.31 Alcoholic cirrhosis of liver with ascites (principal); N20.0 Calculus of kidney
CPT/HCPCS: 76705; 80053; 82105; 85025